=== PATIENT | female | born 1995 | race Caucasian/White ===

== ENCOUNTER 2017-11-26 12:04 | Day surgery (SDC) | payer OTHER, SELFPAY ==
[2017-11-26] VITALS (8 sets, daily range): BP systolic 106–124; BP diastolic 45–81; PULSE 52–97; RESP 14–18; TEMP 36.1–36.6; O2SAT 95–100; BMI 24.4
--- NOTE | 2017-11-26 | PATH_ITS ---
[facility] Accession Number: [id number] . 01 Material submitted: . PERINEAL BIOPSY . 02 Diagnosis: Perineal Biopsy: Dense fibrous tissue with multiple foci of benign endometriosis, negative for atypia. [facility]/12/01/2017 . 02 Electronically signed: . Alli Lopez MD, Pathologist NPI- [id number] . 01 Gross description: . Received in formalin, labeled 1-perineal biopsy, are two pieces of torrez-white, rubbery tissue (1.2 x 0.5 x 0.2 cm and 1.5 x 0.8 x 0.2 cm). Entirely submitted in cassette A1. ([id number]) /FRR . 02 Pathologist provided ICD-10: N80.8 . 02 CPT . 541683 Performed at: 01 [facility] [address] [id number] MD Esvin Armando MD Phone: [phone] [facility]formed at: 02 [facility] [address] [place], [place] [id number] MD Marcell Sawant MD Phone: [phone]
--- NOTE | 2017-11-26 13:03 | SUR.PREOP ---
discharge information reviewed
[2017-11-26] MEDS: LACTATED RINGERS 1,000 ML 42 ML IV ×2 (14:08→16:44)
[2017-11-26] MEDS: BUPIVACAINE 0.5% W/ EPI (PF) 30 ML VIAL INJ (14:48)
--- NOTE | 2017-11-26 15:24 | PM.PREOP ---
Pre-operative Note Interval Note Pre-op Check: History & Physical Reviewed by Physician and Exam Performed
--- NOTE | 2017-11-26 15:25 | PM.OP.1 ---
Operative Date/Time/Diagnoses - Date of procedure: 11/26/17 Time of procedure: 15:25 Pre-op diagnosis: Right lower quadrant pain possible endometriosis Post-op diagnosis: same Procedure & Clinicians Procedure: Laparoscopy with removal of peritoneal endometriosis Same procedure as scheduled: Yes Indications: Right lower quadrant pain with family history of endometriosis Surgeon: Leonie Og Anesthesia Type: General Operative Notes Findings: Normal intra-abdominal contents with normal tubes ovaries and uterus. One area of endometriosis in the cul de sac on the right uterosacral ligament. Closure Type: primary Specimen(s): other (Peritoneal biopsy) Estimated Blood Loss (mL): 5 Procedure in detail: Patient was brought to the operating room where she underwent general anesthesia. She was placed in low yellowfin stirrups and prepped and draped in usual sterile fashion. No antibiotics were indicated. Pulsatile stockings were in place and functional. Warming was with blankets. A single-tooth tenaculum was placed on the anterior lip of the cervix and the cervix dilated to #6 Hegar dilator. The Venus uterine manipulator was placed and balloon inflated with 3 mL of air. The area of the incisions were injected with half percent Marcaine with epinephrine. An incision was made in the umbilicus with a scalpel and the Verres needle placed in the abdomen. Confirmation of correct placement was performed by withdrawal on the syringe and then allowing fluid to fall freely through the needle. The abdomen was insufflated to 4 L of CO2. A 5 mm trocar was placed under direct visualization. 2 other 5 mm trochars were placed in the right and left lower quadrant under direct visualization after incising the skin. There did not appear to be any damage with placement of the trocars. The area of presumed endometriosis was grasped and monopolar cautery attached the scissors was used to remove the area of endometriosis in the posterior cul-de-sac on the right uterosacral ligament. Adequate hemostasis was noted. The CO2 was allowed to escape from the abdomen. The trochars were removed. Skin was closed with 4-0 Monocryl. The patient went to recovery room in good condition. Complications: none Condition: stable Disposition: same day surgery Plan for aftercare: Follow-up in 1 week for incision check.
[2017-11-26] MEDS: fentaNYL 100 MCG/2 ML INJ 50 MCG IV ×2 (15:28→15:35)
[2017-11-26] MEDS: HYDROCODONE/ACET 5/325 TABLET 1 TAB PO (15:48)
[2017-11-26] MEDS: ONDANSETRON 4 MG/2 ML INJ IV (16:39)
[2017-11-26] MEDS: METOCLOPRAMIDE 10 MG/2 ML INJ IV (16:53)
--- NOTE | 2017-11-26 17:19 | SUR.PHASEII ---
Pt. requested to get dressed, want to just go and get into bed, I'm ready to leave. No c/o nausea just sleepy
== END 2017-11-26 17:18 | disposition home or self-care (01) ==
PROVIDERS: PCP Family Medicine; Visit Provider Specialist
PROC: (CPT 49320; principal; 2017-11-26 14:00)
DX: Z84.2 Family history of other diseases of the genitourinary system (principal); N80.8 Other endometriosis
CPT/HCPCS: 58662; J0330; J1100; J1885; J2405; J2704; J2765; J3010

== ENCOUNTER → 2018-03-25 14:39 | Outpatient (CLI) | payer OTHER, SELFPAY ==
[2018-03-25 15:12] LABS: Add Manual Diff / Slide Review NO; Basophils Percent Auto 0.5 % (0-2); Eosinophils Percent Auto 0.7 % (2-4); Hematocrit 35.9 % (36-46); Hemoglobin 12.3 g/dL (12.0-16.0); Lymphocytes Percent Auto 26.1 % (25-40); Mean Corpuscular HGB Conc 34.2 % (30-36); Mean Corpuscular Hemoglobin 30.5 PG (26-34); Mean Corpuscular Volume 89.3 fL (80-100); Neutrophils Absolute Auto 6400 /uL (3000-5900); Neutrophils Percent Auto 66.7 % (50-75); Platelet Count 317 X10^3/uL (150-400); Red Blood Cell Count 4.02 X10^6/uL (4.0-5.2); Red Cell Distribution Width 12.8 % (11.6-14.8); White Blood Cell Count 9.7 X10^3/uL (4.5-11.0)
[2018-03-25 15:15] LABS: Appearance Urine UA CLEAR; Bilirubin Urine UA NEGATIVE (NEGATIVE); Color Urine UA YELLOW; Glucose Urine UA NEGATIVE (Normal); Ketones Urine UA NEGATIVE (NEGATIVE); Leukocyte Esterase Urine UA TRACE (NEGATIVE); Nitrite Urine UA Negative (Negative); Occult Blood Urine UA NEGATIVE (Negative); Protein Urine UA NEGATIVE (Negative); Specific Gravity Urine UA 1.015 (1.000-1.035); Urobilinogen Urine UA 0.2 E.U./dL (0.2); pH Urine UA 6.5 (4.5-8.0)
[2018-03-25 15:26] LABS: Bacteria Urine Moderate (10-30); RBC Urine None Seen (0-5/HPF); Squamous Epithelial Cell Urine 1-5 /HPF; WBC Urine 5-10/HPF (0-5/HPF)
[2018-03-25 16:07] LABS: Hepatitis B Surface Antigen NEGATIVE s/c (NEGATIVE); Rubella Antibody IgG 35.3 IU/mL (>15)
[2018-03-25 16:26] LABS: HIV 1 and 2 Antibody NEGATIVE (NEGATIVE); Hep C Virus Ab w/Reflex Quant NEGATIVE s/c (NEGATIVE)
[2018-03-29 15:12] LABS: HSV 2 IGG AB < 0.90 index (< 0.90); HSV1IGG < 0.90 index (< 0.90)
[2018-04-01 20:29] LABS: Rapid Plasma Reagin NON-REACTIVE
== END ==
PROVIDERS: PCP Family Medicine; Visit Provider Specialist
DX: Z34.81 Encounter for supervision of other normal pregnancy, first trimester (principal); Z3A.01 Less than 8 weeks gestation of pregnancy
CPT/HCPCS: 36415; 80055; 81003; 81015; 86695; 86696; 86703; 86787; 86803; 86850; 86900; 86901; 87086

== ENCOUNTER → 2018-06-01 09:33 | Outpatient (CLI) | payer OTHER, SELFPAY ==
--- NOTE | 2018-06-01 09:35 | DI.US.S_ITS ---
PROCEDURE: US OB >= 14 WEEKS FETUS INDICATIONS: ANATOMY OUTSIDE/PRIOR DATING DATA: Last menstrual period (LMP): 01/12/18. LMP-based estimated date of delivery (JERZY): 10/19/18. First dating scan (date and location): 03/25/18. Estimated date of delivery (JERZY) from first dating scan: 10/19/18. TECHNIQUE: Real-time scanning was performed of the fetus, with image documentation and biometric measurements. Endovaginal scanning: No COMPARISON: [facility], , OB >= 14 WEEKS FETUS, 05/12/2018, 13:02. FINDINGS: General: A single living intrauterine gestation is present. Presentation: Vertex. Placenta: Placental position is posterior, without previa. Amniotic fluid index: 13.2 cm, normal range is 5-24 cm. heart rate: 146 beats per minute. Maternal cervical canal: 3.6 cm long. Normal lower limit is 2.5 cm biometrics: Biparietal diameter: 20 weeks 1 day Head circumference: 20 weeks Abdominal circumference: 20 weeks Femur length: 19 weeks 2 days Estimated gestational age from initial scan: 20 weeks Composite gestational age from present scan: 19 weeks 6 days Estimated weight and percentile: 312 rd percentile Measurement variability for biometric dating: +/- 7 days from 14 weeks to 15 weeks 6 days gestation, +/- 10 days from 16 weeks to 21 weeks 6 days gestation, +/- 2 weeks from 22 weeks to 27 weeks 6 days gestation, +/- 3 weeks for 28 weeks gestation or later. weight reference: 4500 g or EFW >90/95% is considered macrosomia or large for gestational age. EFW <10% is small for gestational age. EFW 5% or less is considered intra-uterine growth restriction. Anatomic survey: Neuro: Ventricles are non-dilated at less than 10 mm. Cisterna magna is normal at 3-11 mm. Cerebellum is normal in size and morphology. Nuchal skin fold: Normal at less than 6 mm between 14-21 weeks gestational age. Face: Nose and lips, facial profile are normal. Spine: No evidence for spina bifida. Heart: 4-chambered heart is present, with normal ventricular outflow tracts. Diaphragm: Diaphragm is intact. Stomach: Left-sided stomach is present. Kidneys: No hydronephrosis. Normal is less than 5 mm in 2nd trimester, less than 7 mm in 3rd trimester. Cord: 3-vessel cord has orthotopic insertion. Bladder: Normal in size. Extremities: All 4 extremities identified. IMPRESSION: 1. Single living IUP with mean composite gestational age of 19 weeks 6 days corresponding to normal interval growth. 2. Normal anatomic survey. Dictated by: Young Shields [facility] Interpreted: Evgeny Stearns MD on 06/01/2018 at 11:25 Approved by: Evgeny Stearns M.D. on 06/01/2018 at 13:23
== END ==
PROVIDERS: PCP Family Medicine; Visit Provider Specialist
DX: Z34.82 Encounter for supervision of other normal pregnancy, second trimester (principal); Z36.89 Encounter for other specified antenatal screening; Z3A.19 19 weeks gestation of pregnancy
CPT/HCPCS: 76811

== ENCOUNTER → 2018-07-14 11:14 | Outpatient (CLI) | payer OTHER, SELFPAY ==
[2018-07-14 12:41] LABS: Hematocrit 35.3 % (36-46); Hemoglobin 11.8 g/dL (12.0-16.0)
[2018-07-14 13:01] LABS: GTT (PREG) 1 Hour PP 50gm Dose 108 mg/dL (76-139)
== END ==
PROVIDERS: Family Provider Family Medicine; PCP Family Medicine; Visit Provider Specialist
DX: Z34.92 Encounter for supervision of normal pregnancy, unspecified, second trimester (principal); Z3A.25 25 weeks gestation of pregnancy
CPT/HCPCS: 36415; 82950; 85014; 85018

== ENCOUNTER 2018-08-02 10:24 | Observation (INO) | payer OTHER, SELFPAY ==
[2018-08-02 11:40] LABS: RBC Urine None Seen (0-5/HPF)
[2018-08-02 11:42] LABS: Appearance Urine UA CLEAR; Bilirubin Urine UA NEGATIVE (NEGATIVE); Color Urine UA YELLOW; Glucose Urine UA NEGATIVE (Negative); Ketones Urine UA NEGATIVE (NEGATIVE); Leukocyte Esterase Urine UA 1+ (NEGATIVE); Nitrite Urine UA NEGATIVE (Negative); Occult Blood Urine UA NEGATIVE (Negative); Protein Urine UA NEGATIVE (Negative); Urobilinogen Urine UA 0.2 E.U./dL (0.2)
[2018-08-02 11:50] LABS: Bacteria Urine Many (>30); Squamous Epithelial Cell Urine 10-30 /HPF; WBC Urine 10-30/HPF (0-5/HPF)
[2018-08-02 11:51] LABS: Mucus Urine 1+ (Negative)
[2018-08-02 14:43] LABS: Fetal Fibronectin Negative
== END 2018-08-02 14:00 | disposition home or self-care (01) ==
PROVIDERS: Obstetrics & Gynecology; Admitting Provider Specialist; Family Provider Family Medicine; PCP Family Medicine; Visit Provider Specialist
DX: Z34.03 Encounter for supervision of normal first pregnancy, third trimester (principal); Z3A.28 28 weeks gestation of pregnancy; N94.89 Other specified conditions associated with female genital organs and menstrual cycle
CPT/HCPCS: 59025; 59050; 81001; 82731; 87086; G0378; G0379

== ENCOUNTER → 2018-09-27 10:44 | Outpatient (CLI) | payer OTHER, SELFPAY ==
[2018-09-28 07:59] LABS: Strep Grp B PCR NEG for Grp B Strep
== END ==
PROVIDERS: Family Provider Family Medicine; PCP Family Medicine; Visit Provider Specialist
DX: Z34.83 Encounter for supervision of other normal pregnancy, third trimester (principal); Z3A.36 36 weeks gestation of pregnancy
CPT/HCPCS: 87653

== ENCOUNTER 2018-10-04 02:32 | Inpatient (IN) | payer OTHER, SELFPAY ==
[2018-10-04 05:33] LABS: Add Manual Diff / Slide Review NO; Basophils Absolute Auto 100 /uL (0-100); Basophils Percent Auto 0.5 % (0-2); Eosinophils Absolute Auto 0 /uL (0-450); Eosinophils Percent Auto 0.3 % (2-4); Hematocrit 33.4 % (36-46); Hemoglobin 11.4 g/dL (12.0-16.0); Lymphocytes Absolute Auto 3000 /uL (1100-4500); Lymphocytes Percent Auto 22.3 % (25-40); Mean Corpuscular Hemoglobin 30.1 PG (26-34); Mean Corpuscular Volume 88.4 fL (80-100); Monocytes Absolute Auto 900 /uL (0-900); Monocytes Percent Auto 6.7 % (3-14); Neutrophils Absolute Auto 9300 /uL (1500-7000); Neutrophils Percent Auto 70.2 % (50-75); Platelet Count 385 X10^3/uL (150-400); Red Blood Cell Count 3.78 X10^6/uL (4.0-5.2); Red Cell Distribution Width 13.5 % (11.6-14.8); White Blood Cell Count 13.3 X10^3/uL (4.5-11.0)
[2018-10-04] MEDS: LACTATED RINGERS 1,000 ML 100 ML IV ×3 (05:45→09:04)
[2018-10-04] MEDS: OXYTOCIN PREMIX 30 UNIT/500 ML PLAST..BAG IV (09:04)
--- NOTE | 2018-10-04 09:28 | PM.OBHP.1 ---
OB HPI Date/Time Date of admission: 10/04/18 Date Patient Seen: 10/04/18 Time Patient Seen: 08:30 History of Present Condition Chief complaint: EVALUATION OF LABOR : 2 Para: 0 Estimated Date of Delivery: 10/20/18 Estimated Gestational Age (weeks): 37 Narrative: Jazz Larios is a 23 year old female admitted with spontaneous rupture membranes History of Present care: good care, initiated at week # (10), number of visits (9) and pounds weight gain (50) Dating criteria: LMP confirmed by 1st trimester US Ultrasounds: normal mid trimester US Obstetrical complications: none Medical complications: none Preadmission Labs Blood type: O (+) positive -: Antibody screen: negative, GBS status: negative, HBsAG: negative, HIV: negative, HSV 1: negative, HSV 2: negative and RPR/VDLR: negative -: Rubella: immune and Varicella: immune HCAB: negative 1 hr GTT: 108 Evaluation Evaluation Baseline heart rate: 120 Variability: Moderate (11-25) monitor accelerations: Present monitor decelerations: Absent Contraction Frequency (minutes): 3 Uterine Contraction Intensity: Moderate Category of Tracing: I Cervical dilation (cm): 2 Cervical effacement (%): 70 station: -2 Laboratory results: Laboratory Tests 10/04/18 10/04/18 05:00 05:00 WBC 13.3 H RBC 3.78 L Hgb 11.4 L Hct 33.4 L MCV 88.4 MCH 30.1 MCHC 34.0 RDW 13.5 Plt Count 385 Neut % (Auto) 70.2 Lymph % (Auto) 22.3 L [place] % (Auto) 6.7 Eos % (Auto) 0.3 L Baso % (Auto) 0.5 Neut # (Auto) 9300 H Lymph # (Auto) 3000 [place] # (Auto) 900 Eos # (Auto) 0 Baso # (Auto) 100 Blood Type O Positive Antibody Screen Negative Non-invasive Membranes Rupture Test: positive [facility] Social History Smoking Status: Never smoker Social History Smoking Status: Never smoker Meds Home Medications Medication Instructions Recorded Confirmed Type 1 tab PO DAILY 03/25/18 10/04/18 History vitamin,calcium,mtmzwmvv-bcdr-yocyi acid tablet Double Electric Breast Pump #1 ea 09/29/18 Rx Allergies Allergy/AdvReac Type Severity Reaction Status Date / Time adhesive tape Allergy Rash Verified 03/25/18 14:56 tramadol Allergy Verified 03/25/18 14:56 codeine [CODEINE] AdvReac Unknown Vomiting Verified 03/25/18 14:56 acetaminophen [From Vicodin] AdvReac Nausea, Verified 03/25/18 14:56 Dizziness hydrocodone [From Vicodin] AdvReac Nausea, Verified 03/25/18 14:56 Dizziness Review of Systems Review of Systems Patient denies signs or symptoms of preeclampsia. No fevers. She has had good movement. She had spontaneous rupture of membranes. All systems reviewed & are unremarkable except as noted in HPI and below Exam Vital Signs (past 8 hours): Blood pressure 122/76, pulse of 107, temperature 97.2? Narrative Exam Narrative: HEENT exam within normal limits. Lungs are clear to auscultation and percussion. Heart is regular rate and rhythm no S3-S4 or murmurs. Abdomen is soft, nontender. Extremities without edema and nontender. Objective Labs Result Diagrams: 10/04/18 05:00 Labs: Laboratory Results - last 24 hr 10/04/18 10/04/18 05:00 05:00 WBC 13.3 H RBC 3.78 L Hgb 11.4 L Hct 33.4 L MCV 88.4 MCH 30.1 MCHC 34.0 RDW 13.5 Plt Count 385 Neut % (Auto) 70.2 Lymph % (Auto) 22.3 L [place] % (Auto) 6.7 Eos % (Auto) 0.3 L Baso % (Auto) 0.5 Neut # (Auto) 9300 H Lymph # (Auto) 3000 [place] # (Auto) 900 Eos # (Auto) 0 Baso # (Auto) 100 Blood Type O Positive Antibody Screen Negative Assessment and Plan Assessment and Plan Assessment and Plan narrative: 37 week 5 day 1st with spontaneous rupture of membranes. Patient is katie but has not had a significant change in her cervix so will begin Pitocin augmentation of labor. Patient received epidural catheter for pain control. Anticipate vaginal delivery.
--- NOTE | 2018-10-04 09:34 | P.HPOB_ITS ---
OB HPI Date/Time Date of admission: 10/04/18 Date Patient Seen: 10/04/18 Time Patient Seen: 08:30 History of Present Condition Chief complaint: EVALUATION OF LABOR : 2 Para: 0 Estimated Date of Delivery: 10/20/18 Estimated Gestational Age (weeks): 37 Narrative: Jazz Larios is a 23 year old female admitted with spontaneous rupture membranes History of Present care: good care, initiated at week # (10), number of visits (9) and pounds weight gain (50) Dating criteria: LMP confirmed by 1st trimester US Ultrasounds: normal mid trimester US Obstetrical complications: none Medical complications: none Preadmission Labs Blood type: O (+) positive -: Antibody screen: negative, GBS status: negative, HBsAG: negative, HIV: negative, HSV 1: negative, HSV 2: negative and RPR/VDLR: negative -: Rubella: immune and Varicella: immune HCAB: negative 1 hr GTT: 108 Evaluation Evaluation Baseline heart rate: 120 Variability: Moderate (11-25) monitor accelerations: Present monitor decelerations: Absent Contraction Frequency (minutes): 3 Uterine Contraction Intensity: Moderate Category of Tracing: I Cervical dilation (cm): 2 Cervical effacement (%): 70 station: -2 Laboratory results: Laboratory Tests 10/04/18 10/04/18 05:00 05:00 WBC 13.3 H RBC 3.78 L Hgb 11.4 L Hct 33.4 L MCV 88.4 MCH 30.1 MCHC 34.0 RDW 13.5 Plt Count 385 Neut % (Auto) 70.2 Lymph % (Auto) 22.3 L [place] % (Auto) 6.7 Eos % (Auto) 0.3 L Baso % (Auto) 0.5 Neut # (Auto) 9300 H Lymph # (Auto) 3000 [place] # (Auto) 900 Eos # (Auto) 0 Baso # (Auto) 100 Blood Type O Positive Antibody Screen Negative Non-invasive Membranes Rupture Test: positive [facility] Social History Smoking Status: Never smoker Social History Smoking Status: Never smoker Meds Home Medications Medication Instructions Recorded Confirmed Type 1 tab PO DAILY 03/25/18 10/04/18 History vitamin,calcium,kjjihpxu-nyqp-ygrlp acid tablet Double Electric Breast Pump #1 ea 09/29/18 Rx Allergies Allergy/AdvReac Type Severity Reaction Status Date / Time adhesive tape Allergy Rash Verified 03/25/18 14:56 tramadol Allergy Verified 03/25/18 14:56 codeine [CODEINE] AdvReac Unknown Vomiting Verified 03/25/18 14:56 acetaminophen [From Vicodin] AdvReac Nausea, Verified 03/25/18 14:56 Dizziness hydrocodone [From Vicodin] AdvReac Nausea, Verified 03/25/18 14:56 Dizziness Review of Systems Review of Systems Patient denies signs or symptoms of preeclampsia. No fevers. She has had good movement. She had spontaneous rupture of membranes. All systems reviewed & are unremarkable except as noted in HPI and below Exam Vital Signs (past 8 hours): Blood pressure 122/76, pulse of 107, temperature 97.2? Narrative Exam Narrative: HEENT exam within normal limits. Lungs are clear to auscultation and percussion. Heart is regular rate and rhythm no S3-S4 or mu rmurs. Abdomen is soft, nontender. Extremities without edema and nontender. Objective Labs Result Diagrams: 10/04/18 05:00 Labs: Laboratory Results - last 24 hr 10/04/18 10/04/18 05:00 05:00 WBC 13.3 H RBC 3.78 L Hgb 11.4 L Hct 33.4 L MCV 88.4 MCH 30.1 MCHC 34.0 RDW 13.5 Plt Count 385 Neut % (Auto) 70.2 Lymph % (Auto) 22.3 L [place] % (Auto) 6.7 Eos % (Auto) 0.3 L Baso % (Auto) 0.5 Neut # (Auto) 9300 H Lymph # (Auto) 3000 [place] # (Auto) 900 Eos # (Auto) 0 Baso # (Auto) 100 Blood Type O Positive Antibody Screen Negative Assessment and Plan Assessment and Plan Assessment and Plan narrative: 37 week 5 day 1st with spontaneous rupture of membranes. Patient is katie but has not had a significant change in her cervix so will begin Pitocin augmentation of labor. Patient received epidural catheter for pain control. Anticipate vaginal delivery.
--- NOTE | 2018-10-04 15:11 | PM.OBPRVD ---
Events: Premature Rupture of Membrane Delivery date: 10/04/18 Delivery augmentation: pitocin Delivery monitor: external FHT and external uterine Route of delivery: L&D Laceration Description: Vaginal - 1st Degree Delivery repair: chromic (3-0) Estimated blood loss (mL): 100 Anesthesia type: Epidural Narrative: Patient arrived on Labor and delivery after having spontaneous rupture membranes at 7:00 p.m. on 10/03/2018. She was katie and received an epidural catheter but had not changed her cervix so was started on IV Pitocin augmentation. Patient progressed rapidly to complete and pushing. heart tones category 1 to category 2 throughout labor. The patient delivered spontaneously, over an intact perineum. The infant was placed on maternal abdomen after the cord stopped pulsating the cord was clamped cut and cord bloods obtained. The placenta delivered spontaneously, intact, with 3 vessels. There were no cervical tears. There was a first-degree vaginal tear of the just inside the hymen to the outside of the posterior fourchette. This was repaired with 3 0 chromic suture in the usual 2 layer fashion. There were periurethral tears that did not require suturing. The viable female infant weighed 6 lb 13 oz, 3094 g. both and mother doing well. The infant had initial increased temperature to 101 and maternal temperatures of 99.4 but decreasing for both. They will be monitored for signs of infection. Baby 1: gender: Female Presentation: vertex position: Right Occiput Anterior Placenta delivery description: Spontaneous cord vessel description: 3 Vessels score (1 min): 9 score (5 min): 9 Plan for aftercare: Routine care
[2018-10-04] MEDS: DERMOPLAST SPRAY 20% 60 ML 1 SPRAY TOP (18:39)
[2018-10-04 19:06] VITALS: BP 122/76
[2018-10-04] MEDS: IBUPROFEN 600 MG TABLET PO (20:40)
[2018-10-05] MEDS: LANOLIN OINT 7 GM 1 APPLIC TOP (00:13)
[2018-10-05] MEDS: IBUPROFEN 600 MG TABLET PO ×2 (06:38→12:29)
[2018-10-05 07:15] LABS: Add Manual Diff / Slide Review NO; Basophils Absolute Auto 100 /uL (0-100); Basophils Percent Auto 0.3 % (0-2); Eosinophils Absolute Auto 100 /uL (0-450); Eosinophils Percent Auto 0.4 % (2-4); Hematocrit 26.9 % (36-46); Hemoglobin 9.1 g/dL (12.0-16.0); Lymphocytes Absolute Auto 2800 /uL (1100-4500); Lymphocytes Percent Auto 16.7 % (25-40); Mean Corpuscular HGB Conc 33.7 % (30-36); Mean Corpuscular Hemoglobin 29.9 PG (26-34); Mean Corpuscular Volume 88.7 fL (80-100); Monocytes Absolute Auto 1300 /uL (0-900); Monocytes Percent Auto 7.9 % (3-14); Neutrophils Absolute Auto 12500 /uL (1500-7000); Neutrophils Percent Auto 74.7 % (50-75); Platelet Count 273 X10^3/uL (150-400); Red Blood Cell Count 3.03 X10^6/uL (4.0-5.2); Red Cell Distribution Width 13.4 % (11.6-14.8); White Blood Cell Count 16.7 X10^3/uL (4.5-11.0)
--- NOTE | 2018-10-05 08:08 | PM.OBDS.1 ---
Discharge Providers Date of admission: 10/04/18 02:32 Discharge Date: 10/05/18 Primary care physician: Dixon Gómez MD Consults: 10/04/18 15:29 Consult to [employer] Routine Comment: Discharge provider: Leonie Og MD Summary Date Patient Seen: 10/05/18 Time Patient Seen: 08:08 Procedures: Epidural catheter, Pitocin augmentation of labor, vaginal delivery, repair of first-degree vaginal laceration Hospital Course: Patient arrived on Labor and delivery with rupture membranes. She received an epidural catheter for pain control. She required Pitocin augmentation of labor. She had spontaneous vaginal delivery of a viable female weighing 6 lb 13 oz. Both mother doing well. They are breast-feeding without difficulty. Patient denies any signs or symptoms of preeclampsia. Her bleeding is a minimal. Blood pressure 113/56, pulse of 88, temperature 97.8? Abdomen is soft, nontender. Uterus is firm, at U, nontender. Repair is intact. Mild lochia. Extremities with +1 edema and nontender. Patient is O positive and rubella immune. Peripartum Data Delivery Method: Natural Vaginal Laceration description: Vaginal - 1st Degree complications: none [place] 1: Gender: Female Disposition of : home Discharge Diagnosis (1) Vaginal delivery: Status: Acute Status at Discharge Cognitive/behavioral status at discharge: oriented Overall status at discharge: patient is progressing back to baseline Time Spent with Patient Total time spent providing and/or coordinating discharge services: Less than 30 minutes Objective Labs Result Diagrams: 10/05/18 06:23 Labs: Laboratory Results - last 24 hr 10/05/18 06:23 WBC 16.7 H RBC 3.03 L Hgb 9.1 L Hct 26.9 L MCV 88.7 MCH 29.9 MCHC 33.7 RDW 13.4 Plt Count 273 Neut % (Auto) 74.7 Lymph % (Auto) 16.7 L [place] % (Auto) 7.9 Eos % (Auto) 0.4 L Baso % (Auto) 0.3 Neut # (Auto) 65444 H Lymph # (Auto) 2800 [place] # (Auto) 1300 H Eos # (Auto) 100 Baso # (Auto) 100 Discharge Plan Discharge Plan Patient Disposition: Home Discharge Med Rec/Prescriptions Prescriptions: Continued prenat.vits,radha,xhb-tdet-fneeu [ Vitamin] tablet 1 tab PO DAILY RF: 0 No Action Double Electric Breast Pump Qty: 1 RF: 0 Follow up/Referrals: Leonie Og MD [Physician] - 1 Month Dixon Gómez MD [Primary Care Provider] - Provider Discharge Instructions Diet: Regular Activity: Nothing in vagina for 4 weeks Skin/Wound/Dressing Care Report to your healthcare provider any signs of infection, such as:: chills, fever and increased pain Discharge Data Primary Care Provider: Dxion Gómez Attending Provider: Leonie Og Admit Date/Time: 10/04/18 02:32
--- NOTE | 2018-10-05 08:11 | P.DS_ITS ---
Discharge Providers Date of admission: 10/04/18 02:32 Discharge Date: 10/05/18 Primary care physician: Dixon Gómez MD Consults: 10/04/18 15:29 Consult to [employer] Routine Comment: Discharge provider: Leonie Og MD Summary Date Patient Seen: 10/05/18 Time Patient Seen: 08:08 Procedures: Epidural catheter, Pitocin augmentation of labor, vaginal delivery, repair of first-degree vaginal laceration Hospital Course: Patient arrived on Labor and delivery with rupture membranes. She received an epidural catheter for pain control. She required Pitocin augmentation of labor. She had spontaneous vaginal delivery of a viable female weighing 6 lb 13 oz. Both mother doing well. They are breast-feeding without difficulty. Patient denies any signs or symptoms of preeclampsia. Her bleeding is a minimal. Blood pressure 113/56, pulse of 88, temperature 97.8? Abdomen is soft, nontender. Uterus is firm, at U, nontender. Repair is intact. Mild lochia. Extremities with +1 edema and nontender. Patient is O positive and rubella immune. Peripartum Data Delivery Method: Natural Vaginal Laceration description: Vaginal - 1st Degree complications: none [place] 1: Gender: Female Disposition of : home Discharge Diagnosis (1) Vaginal delivery: Status: Acute Status at Discharge Cognitive/behavioral status at discharge: oriented Overall status at discharge: patient is progressing back to baseline Time Spent with Patient Total time spent providing and/or coordinating discharge services: Less than 30 minutes Objective Labs Result Diagrams: 10/05/18 06:23 Labs: Laboratory Results - last 24 hr 10/05/18 06:23 WBC 16.7 H RBC 3.03 L Hgb 9.1 L Hct 26.9 L MCV 88.7 MCH 29.9 MCHC 33.7 RDW 13.4 Plt Count 273 Neut % (Auto) 74.7 Lymph % (Auto) 16.7 L [place] % (Auto) 7.9 Eos % (Auto) 0.4 L Baso % (Auto) 0.3 Neut # (Auto) 90972 H Lymph # (Auto) 2800 [place] # (Auto) 1300 H Eos # (Auto) 100 Baso # (Auto) 100 Discharge Plan Discharge Plan Patient Disposition: Home Discharge Med Rec/Prescriptions Prescriptions: Continued prenat.vits,radha,hrq-dttq-spqpe [ Vitamin] tablet 1 tab PO DAILY RF: 0 No Action Double Electric Breast Pump Qty: 1 RF: 0 Follow up/Referrals: Leonie Og MD [Physician] - 1 Month Dixon Gómez MD [Primary Care Provider] - Provider Discharge Instructions Diet: Regular Activity: Nothing in vagina for 4 weeks Skin/Wound/Dressing Care Report to your healthcare provider any signs of infection, such as:: chills, fever and increased pain Discharge Data Primary Care Provider: Dixon Gómez Attending Provider: Leonie Og Admit Date/Time: 10/04/18 02:32
[2018-10-05] MEDS: TET,DIPH,PERTUSS(ACELL),VAC/PF 0.5 ML SYRINGE IM (12:33)
[2018-10-05] MEDS: DOCUSATE 250 MG CAPSULE PO (12:33)
== END 2018-10-05 14:30 | disposition home or self-care (01) | DRG 807 ==
PROVIDERS: Admitting Provider Specialist; Family Provider Family Medicine; PCP Family Medicine; Visit Provider Specialist
DX: O42.02 Full-term premature rupture of membranes, onset of labor within 24 hours of rupture (principal); Z37.0 Single live birth; Z3A.37 37 weeks gestation of pregnancy; O70.0 First degree perineal laceration during delivery
CPT/HCPCS: 01967; 36415; 59050; 59400; 76815; 85025; 86850; 86900; 86901; 90715; G0379; J2590

== ENCOUNTER → 2019-08-23 11:34 | Outpatient (CLI) | payer OTHER, SELFPAY ==
[2019-08-23 12:12] LABS: Appearance Urine UA SL CLOUDY; Bilirubin Urine UA NEGATIVE (NEGATIVE); Color Urine UA YELLOW; Glucose Urine UA NEGATIVE (Negative); Ketones Urine UA NEGATIVE (NEGATIVE); Leukocyte Esterase Urine UA NEGATIVE (NEGATIVE); Nitrite Urine UA NEGATIVE (Negative); Occult Blood Urine UA NEGATIVE (Negative); Protein Urine UA NEGATIVE (Negative); Specific Gravity Urine UA 1.025 (1.000-1.035); Urobilinogen Urine UA 0.2 E.U./dL (0.2)
[2019-08-23 12:13] LABS: Add Manual Diff / Slide Review NO; Basophils Absolute Auto 0 /uL (0-100); Basophils Percent Auto 0.4 % (0-2); Eosinophils Absolute Auto 0 /uL (0-450); Eosinophils Percent Auto 0.2 % (2-4); Hematocrit 39.3 % (36-46); Hemoglobin 13.3 g/dL (12.0-16.0); Lymphocytes Absolute Auto 1800 /uL (1100-4500); Lymphocytes Percent Auto 19.5 % (25-40); Mean Corpuscular HGB Conc 33.9 % (30-36); Mean Corpuscular Hemoglobin 30.3 PG (26-34); Mean Corpuscular Volume 89.3 fL (80-100); Monocytes Absolute Auto 500 /uL (0-900); Monocytes Percent Auto 5.5 % (3-14); Neutrophils Absolute Auto 7000 /uL (1500-7000); Neutrophils Percent Auto 74.4 % (50-75); Platelet Count 366 X10^3/uL (150-400); White Blood Cell Count 9.3 X10^3/uL (4.5-11.0)
[2019-08-23 12:14] LABS: pH Urine UA 5.5 (4.5-8.0)
[2019-08-23 16:52] LABS: Hepatitis B Surface Antigen NEGATIVE s/c (NEGATIVE); Rubella Antibody IgG 34.5 IU/mL (>15)
[2019-08-23 17:04] LABS: HIV 1 & 2 Ab/Ag 4th Gen Combo NEGATIVE (NEGATIVE); Hep C Virus Ab w/Reflex Quant NEGATIVE s/c (NEGATIVE)
[2019-08-25 20:38] LABS: RPR Screen Nonreactive (Nonreactive)
== END ==
PROVIDERS: Family Provider Family Medicine; PCP Family Medicine; Referring Provider Specialist; Visit Provider Specialist
DX: Z34.81 Encounter for supervision of other normal pregnancy, first trimester (principal)
CPT/HCPCS: 36415; 80055; 81003; 86787; 86803; 86850; 86900; 86901; 87086; 87389

== ENCOUNTER → 2019-11-09 09:13 | Outpatient (CLI) | payer OTHER, SELFPAY ==
--- NOTE | 2019-11-09 09:15 | DI.US.S_ITS ---
PROCEDURE: US OB >= 14 WEEKS FETUS INDICATIONS: ANATOMY OUTSIDE/PRIOR DATING DATA: Last menstrual period (LMP): 06/26/2019. LMP-based estimated date of delivery (JERZY): 03/31/2020. First dating scan (date and location): 08/23/2019. Estimated date of delivery (JERZY) from first dating scan: 03/28/2020. TECHNIQUE: Real-time scanning was performed of the fetus, with image documentation and biometric measurements. Endovaginal scanning: Not performed COMPARISON: [facility], , OB <= 14 WEEKS FETUS, 09/20/2019, 12:39. [facility], , OB <= 14 WEEKS FETUS, 08/23/2019, 11:13. FINDINGS: General: A single living intrauterine gestation is present. Presentation: Breech. Placenta: Placental position is anterior, without previa. Amniotic fluid index: 15.8 cm, normal range is 5-24 cm. heart rate: 157 beats per minute. Maternal cervical canal: 4.0 cm long. Normal lower limit is 2.5 cm. biometrics: Biparietal diameter: 20 weeks 1 days Head circumference: 20 weeks 1 days Abdominal circumference: 21 weeks 1 day Femur length: 19 weeks 6 days Estimated gestational age from initial scan: 20 weeks 0 day. Composite gestational age from present scan: 20 weeks 2 days Estimated weight and percentile: 361 gm; 76% Measurement variability for biometric dating: +/- 7 days from 14 weeks to 15 weeks 6 days gestation, +/- 10 days from 16 weeks to 21 weeks 6 days gestation, +/- 2 weeks from 22 weeks to 27 weeks 6 days gestation, +/- 3 weeks for 28 weeks gestation or later. weight reference: 4500 g or EFW >90/95% is considered macrosomia or large for gestational age. EFW <10% is small for gestational age. EFW 5% or less is considered intra-uterine growth restriction. Anatomic survey: Neuro: Ventricles are non-dilated at less than 10 mm. Cisterna magna is normal at 3-11 mm. Cerebellum is normal in size and morphology. Nuchal skin fold: Normal at less than 6 mm between 14-21 weeks gestational age. Face: Nose and lips, facial profile are normal. Spine: No evidence for spina bifida. Heart: 4-chambered heart is present, with normal ventricular outflow tracts. Diaphragm: Diaphragm is intact. Stomach: Left-sided stomach is present. Kidneys: No hydronephrosis. Normal is less than 5 mm in 2nd trimester, less than 7 mm in 3rd trimester. Cord: 3-vessel cord has orthotopic insertion. Bladder: Normal in size. Extremities: All 4 extremities identified. IMPRESSION: 1. A single living intrauterine gestation with appropriate interval growth. 2. Normal anatomic survey. Dictated by: Albin Galindo M.D. on 11/09/2019 at 10:33 Approved by: Albin Galindo M.D. on 11/09/2019 at 10:36
== END ==
PROVIDERS: Family Provider Family Medicine; PCP Family Medicine; Referring Provider Specialist; Visit Provider Specialist
DX: Z34.82 Encounter for supervision of other normal pregnancy, second trimester (principal); Z3A.20 20 weeks gestation of pregnancy
CPT/HCPCS: 76811

== ENCOUNTER → 2019-12-14 10:27 | Outpatient (CLI) | payer OTHER, SELFPAY ==
[2019-12-14 12:50] LABS: Hematocrit 35.5 % (36-46); Hemoglobin 12.3 g/dL (12.0-16.0)
[2019-12-14 13:15] LABS: GTT (PREG) 1 Hour PP 50gm Dose 162 mg/dL (76-139)
== END ==
PROVIDERS: Family Provider Family Medicine; PCP Family Medicine; Referring Provider Specialist; Visit Provider Specialist
DX: Z34.82 Encounter for supervision of other normal pregnancy, second trimester (principal)
CPT/HCPCS: 36415; 82950; 85014; 85018

== ENCOUNTER → 2019-12-21 08:56 | Outpatient (CLI) | payer OTHER, SELFPAY ==
[2019-12-21 11:19] LABS: Glucose Fasting Gestational 71 mg/dL (76-95)
[2019-12-21 11:21] LABS: Glucose 1 Hour Gest 153 mg/dL (76-180)
[2019-12-21 12:33] LABS: Glucose Tol Interp,Gestational INTERPRETATION
[2019-12-21 13:18] LABS: Glucose 2 Hour Gest 90 mg/dL (76-155)
[2019-12-21 13:19] LABS: Glucose 3 Hour Gest 104 mg/dL (76-140)
== END ==
PROVIDERS: Family Provider Family Medicine; PCP Family Medicine; Referring Provider Specialist; Visit Provider Specialist
DX: O99.810 Abnormal glucose complicating pregnancy (principal)
CPT/HCPCS: 36415; 82951; 82952

== ENCOUNTER 2020-03-21 15:08 | Outpatient (CLI) | payer OTHER, SELFPAY ==
--- NOTE | 2020-03-21 15:47 | PM.OBTRLD ---
Visit Information Visit Information Date of evaluation: 03/21/20 Primary OB Provider: Leonie Og Reason for Evaluation: Yes rule out labor Comments/Additional reasons for admission: 24YO @ [id number] presents w/ c/o persistent mild ctx since last night and decreased FM since contractions started. No VB or LOF. 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) special kyler needs: No seatbelt use: always working smoke detector in home: Yes fire extinguisher in home: Yes carbon monox detector in home: Yes firearms in home: Yes ( [employer]) firearms unloaded and locked: No do you feel safe at home: Yes Smoking Status: Never smoker alcohol intake: former substance use type: does not use during the past year weight has: decreased > 10 lbs well-balanced diet: daily or most days daily servings fruits/ve-4 caffeine: Yes Type(s) of exercise: walking and aerobic frequency: 1-2 times per week Review of Systems Review of Systems ROS: Yes All systems reviewed with the patient and are negative except as otherwise documented Exam Vital Signs (past 8 hours): see above Presentation: vertex Evaluation Evaluation Baseline heart rate: 140 Variability: Moderate (11-25) monitor accelerations: Present monitor decelerations: Absent Contraction Frequency (minutes): 6 Uterine Contraction Intensity: Mild Category of Tracing: Reactive Cervical dilation (cm): 1 Cervical effacement (%): 10 station: -3 Diagnosis, Plan/Disposition Plan/Disposition Plan: Not in active labor w/ reactive NST. [place] if things progress. Routine labor precautions discussed. RTC as previously scheduled. OB Disposition: home
== END 2020-03-21 15:50 | disposition home or self-care (01) ==
LOC: OB 03-25 12:29
PROVIDERS: Family Provider Family Medicine; PCP Family Medicine; Referring Provider Family Medicine; Visit Provider Family Medicine
DX: O36.8130 Decreased fetal movements, third trimester, not applicable or unspecified (principal); Z3A.38 38 weeks gestation of pregnancy
CPT/HCPCS: 59025; G0378; G0379

== ENCOUNTER 2020-03-22 11:51 | Observation (INO) | payer OTHER, SELFPAY ==
--- NOTE | 2020-03-22 11:54 | DI.US.S_ITS ---
PROCEDURE: US OB BIOPHYSICAL PROFILE INDICATIONS: decreased movement, OUTSIDE/PRIOR DATING DATA: Last menstrual period (LMP): 06/23/19. LMP-based estimated date of delivery (JERZY): 03/31/20 First dating scan (date and location): 08/23/19 Estimated date of delivery (JERZY) from first dating scan: 03/28/20 TECHNIQUE: Real-time scanning was performed of the fetus for biophysical profile, with image documentation. Color and pulse Doppler interrogation was also performed of the umbilical artery near its insertion into the placenta. Endovaginal scanning: Not needed COMPARISON: None. FINDINGS: General: A single living intrauterine gestation is present. Presentation: Vertex. Placenta: Placental position is anterior , without previa. Amniotic fluid index: 8.5 cm, normal range is 5-24 cm. heart rate: 144 beats per minute. Maternal cervical canal: 4.0 cm long. Normal lower limit is 2.5 cm. Estimated gestational age from initial scan: 39 weeks 1 day . Biophysical profile: Tone: 2 points. Movement: 2 points. Respiration: 2 points. Largest pocket of fluid: 2 points. IMPRESSION: Vertex presentation. Biophysical profile is 8 of 8 possible points. Dictated by: Kt Lee M.D. on 03/22/2020 at 15:06 Approved by: Kt Lee M.D. on 03/22/2020 at 15:08
[2020-03-22 12:40] LABS: Appearance Urine UA CLEAR; Bilirubin Urine UA NEGATIVE (NEGATIVE); Color Urine UA YELLOW; Glucose Urine UA NEGATIVE (Negative); Ketones Urine UA NEGATIVE (NEGATIVE); Leukocyte Esterase Urine UA 1+ (NEGATIVE); Nitrite Urine UA NEGATIVE (Negative); Occult Blood Urine UA NEGATIVE (Negative); Protein Urine UA NEGATIVE (Negative); RBC Urine None Seen (0-5/HPF); Specific Gravity Urine UA 1.015 (1.000-1.035); Urobilinogen Urine UA 0.2 E.U./dL (0.2)
[2020-03-22 12:49] LABS: Amorphous Sediment Urine 1+; Bacteria Urine Many (>30); Culture Indicated Urine Specimen Cultured; Mucus Urine 1+ (Negative); Squamous Epithelial Cell Urine 1-5 /HPF (0-5/HPF); Transitional Epi Cells Urine 0-1/HPF (0-5/HPF); WBC Urine 5-10/HPF (0-5/HPF)
--- NOTE | 2020-03-23 11:10 | PM.OBTRLD ---
Visit Information Visit Information Date of evaluation: 03/23/20 Primary OB Provider: Leonie Og On-call OB Provider: Aisha Corrales Reason for Evaluation: Yes non-stress test Comments/Additional reasons for admission: Patient sent over at 38 weeks for NST for decreased movement in the setting of irregular cramping, nausea. 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) special kyler needs: No seatbelt use: always working smoke detector in home: Yes fire extinguisher in home: Yes carbon monox detector in home: Yes firearms in home: Yes ( [employer]) firearms unloaded and locked: No do you feel safe at home: Yes Smoking Status: Never smoker alcohol intake: former substance use type: does not use during the past year weight has: decreased > 10 lbs well-balanced diet: daily or most days daily servings fruits/ve-4 caffeine: Yes Type(s) of exercise: walking and aerobic frequency: 1-2 times per week Review of Systems Review of Systems Narrative: nasuea, cramping, diarrhea Exam Const General: cooperative, healthy appearing and comfortable GI Palpation: soft and No tender Objective Labs Labs: Laboratory Results - last 24 hr 03/22/20 12:35 Urine Color Yellow Urine Appearance Clear Urine pH 7.0 Ur Specific [place] 1.015 Urine Protein Negative Urine Glucose (UA) Negative Urine Ketones Negative Urine Occult Blood Negative Urine Nitrate Negative Urine Bilirubin Negative Urine Urobilinogen 0.2 Ur Leukocyte Esterase 1+ H Urine RBC None seen Urine WBC 5-10/hpf H Ur Squamous Epith Cells 1-5 /hpf D Ur Transition Epith Cell 0-1/hpf Amorphous Sediment 1+ Urine Bacteria Many (>30) H Urine Mucus 1+ H Ur Culture Indicated? Specimen cultured Evaluation Evaluation Baseline heart rate: 130 Variability: Moderate (11-25) monitor accelerations: Present monitor decelerations: Absent Contraction Frequency (minutes): 10 Category of Tracing: Reactive Laboratory results: Laboratory Tests 03/22/20 12:35 Urine Color Yellow Urine Appearance Clear Urine pH 7.0 Ur Specific [place] 1.015 Urine Protein Negative Urine Glucose (UA) Negative Urine Ketones Negative Urine Occult Blood Negative Urine Nitrate Negative Urine Bilirubin Negative Urine Urobilinogen 0.2 Ur Leukocyte Esterase 1+ H Urine RBC None seen Urine WBC 5-10/hpf H Ur Squamous Epith Cells 1-5 /hpf D Ur Transition Epith Cell 0-1/hpf Amorphous Sediment 1+ Urine Bacteria Many (>30) H Urine Mucus 1+ H Ur Culture Indicated? Specimen cultured Comments: Patient sent for BPP in , 02/16 with ASHLIE 8.5 Diagnosis, Plan/Disposition Plan/Disposition Plan: Patient has reassuring testing and is feeling movement after eating for the first time today during her NST. Tolerated this PO intake. UA significant for UTI, discharged on keflex with precautions. Plans to stay off [place] over the weekend. OB Disposition: home
== END 2020-03-22 12:45 | disposition home or self-care (01) ==
PROVIDERS: Obstetrics & Gynecology; Admitting Provider Specialist; Family Provider Family Medicine; PCP Family Medicine; Referring Provider Specialist; Visit Provider Specialist
DX: O36.8130 Decreased fetal movements, third trimester, not applicable or unspecified (principal); R11.0 Nausea; R19.7 Diarrhea, unspecified; M54.9 Dorsalgia, unspecified; Z3A.38 38 weeks gestation of pregnancy
CPT/HCPCS: 76819; 81001; 87086; G0378; G0379

== ENCOUNTER 2020-03-24 07:44 | Inpatient (IN) | payer OTHER, SELFPAY ==
--- NOTE | 2020-03-24 08:05 | P.HPOB_ITS ---
OB HPI Date/Time Date of admission: 03/24/20 Date Patient Seen: 03/24/20 Time Patient Seen: 08:00 History of Present Condition Chief complaint: Delivery : 4 Para: 1 Estimated Date of Delivery: 03/31/20 Estimated Gestational Age (weeks): 39 Narrative: Jazz Larios is a 24 year old @39+0 who presented via EMS, having gone into precipitous labor on [facility] and delviered on an EMS boat en route. She reports that she woke at 3:30 katie q20-30 minutes, began arranging transport, and broke her water while waiting for EMS. She was recently treated for a UTI with keflex, which she has been taking. She denies any other symptoms or complications. Her had been otherwise uncomplicated, and she had a history of 1x prior and 2x early SABs, but denies any other contributory medical, surgical, front office representative, family, or social history. Per EMS notes and an accompanying FM resident, the delivery was uncomplicated, with 1x loose nuchal cord and spontaneous delivery of an intact placenta. 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) special kyler needs: No seatbelt use: always working smoke detector in home: Yes fire extinguisher in home: Yes carbon monox detector in home: Yes firearms in home: Yes ( [employer]) firearms unloaded and locked: No do you feel safe at home: Yes Smoking Status: Never smoker alcohol intake: former substance use type: does not use during the past year weight has: decreased > 10 lbs well-balanced diet: daily or most days daily servings fruits/ve-4 caffeine: Yes Type(s) of exercise: walking and aerobic frequency: 1-2 times per week Meds Home Medications and Allergies Home Medications Medication Instructions Recorded Confirmed Type prenat.vits,radha,bcm-glpy-jlhvx 1 tab PO DAILY 03/25/18 03/21/20 History Double Electric breast Pump and #1 each 02/13/20 03/11/20 Rx Supplies cephalexin 500 mg capsule 500 mg PO BID #14 cap 03/22/20 03/22/20 Rx Allergies Allergy/AdvReac Type Severity Reaction Status Date / Time adhesive tape Allergy Rash Verified 03/21/20 15:24 tramadol Allergy Verified 03/21/20 15:24 codeine [CODEINE] AdvReac Unknown Vomiting Verified 03/21/20 15:24 hydrocodone [From Vicodin] AdvReac Nausea, Verified 03/21/20 15:24 Dizziness Review of Systems Constitutional Constitutional: Reports system reviewed and no additional complaints, except as documented Cardiovascular Cardiovascular: Reports system reviewed and no additional complaints, except as documented Respiratory Respiratory: Reports system reviewed and no additional complaints, except as documented Gastrointestinal Gastrointestinal: Reports system reviewed and no additional complaints, except as documented Genitourinary Genitourinary: Reports system reviewed and no additional complaints, except as documented Exam Vital Signs (past 8 hours): VSS on arrival per nursing staff, but not recorded. Const General: cooperative, healthy appearing and comfortable GI Palpation: soft and No tender Other: A 2nd degree perineal laceration was noted on exam. This was infiltrated with 6ccs 1% lidocaine and repaired with 3-0 vicryl in the usual fashion. Skin General: no rashes or lesions noted Assessment and Plan Assessment and Plan Assessment and Plan narrative: This patient presented after precipitous vaginal delivery en route to the hospital, having delivered the placenta intact prior to arrival and received 10mg IM pitocin . The patient is doing well with mild to moderate lochia and a firm fundus, and had a 2nd degree perineal laceration as repaired above. - 20mU pitocin in IV fluids over 2 hours - routine care
[2020-03-24] MEDS: IBUPROFEN 600 MG TABLET PO ×2 (08:59→19:42)
--- NOTE | 2020-03-24 09:08 | PM.OBPRVD ---
Labor & Delivery Delivery date: 03/24/20 Intrapartal events: Precipitous Labor < 3 hours and Born Out of Hospital Route of delivery: L&D Laceration Description: Perineal - 2nd Degree Delivery repair: vicryl Estimated blood loss (mL): 100 Narrative: This patient began katie on [facility], and delivered with assistance from EMS on a boat on route. She was assisted by a resident from the [facility], who reports an uncomplicated delivery with reduction of one loose nuchal cord, intact and spontaneous placental delivery, and no other complications. She received 10mU IM pitocin en route. On arrival, a 2nd degree perineal laceration was noted and repaired with 3-0 vicryl in the usual fashion after infiltration with lidocaine. The patient was administered 20mU pitocin in her IV fluids, but had an otherwise uncomplicated immediate course. [place] Baby 1: Infant gender: Male Presentation: vertex Placenta delivery description: Spontaneous score (1 min): 9 score (5 min): 9 Plan for aftercare: Routine care.
[2020-03-25] MEDS: IBUPROFEN 600 MG TABLET PO (05:50)
[2020-03-25 06:03] LABS: Add Manual Diff / Slide Review NO; Basophils Absolute Auto 100 /uL (0-100); Basophils Percent Auto 0.5 % (0-2); Eosinophils Absolute Auto 100 /uL (0-450); Eosinophils Percent Auto 0.8 % (2-4); Hematocrit 26.5 % (36-46); Hemoglobin 8.5 g/dL (12.0-16.0); Lymphocytes Absolute Auto 3700 /uL (1100-4500); Lymphocytes Percent Auto 31.6 % (25-40); Mean Corpuscular HGB Conc 32.1 % (30-36); Mean Corpuscular Hemoglobin 27.5 PG (26-34); Mean Corpuscular Volume 85.7 fL (80-100); Monocytes Absolute Auto 700 /uL (0-900); Monocytes Percent Auto 6.3 % (3-14); Neutrophils Absolute Auto 7100 /uL (1500-7000); Neutrophils Percent Auto 60.8 % (50-75); Platelet Count 247 X10^3/uL (150-400); Red Blood Cell Count 3.09 X10^6/uL (4.0-5.2); Red Cell Distribution Width 15.4 % (11.6-14.8); White Blood Cell Count 11.6 X10^3/uL (4.5-11.0)
--- NOTE | 2020-03-25 07:52 | P.DS_ITS ---
Discharge Providers Provider Date of admission: 03/24/20 07:44 Discharge Date: 03/25/20 Primary care physician: Dixon Gómez MD Consults: 03/25/20 08:03 Consult to Blocking Machine Operator Second Routine Comment: Discharge provider: Aisha Corrales MD Summary Hospital Course Date Patient Seen: 03/25/20 Time Patient Seen: 07:53 Procedures: Perineal laceration repair- out of hospital Hospital Course: This patient was brought in by EMS shortly after delivering a healthy baby boy en route to the hospital. The placenta had delivered intact, and a 2nd degree perineal laceration was repaired under local anesthetic. Her recovery was uneventful, and she was discharged on PPD#1 with routine precautions. Peripartum Data Delivery Method: Natural Vaginal Laceration Description: Perineal - 2nd Degree complications: none 1: Gender: Male Disposition of : home Status at Discharge Cognitive/behavioral status at discharge: oriented Functional status at discharge: independent ambulation Overall status at discharge: patient is progressing back to baseline Time Spent with Patient Time attestation: Total time spent providing and/or coordinating discharge services: Objective Labs Result Diagrams: 03/25/20 05:35 Labs: Laboratory Results - last 24 hr 03/25/20 05:35 WBC 11.6 H RBC 3.09 L Hgb 8.5 L Hct 26.5 L MCV 85.7 MCH 27.5 MCHC 32.1 RDW 15.4 H Plt Count 247 Neut % (Auto) 60.8 Lymph % (Auto) 31.6 [place] % (Auto) 6.3 Eos % (Auto) 0.8 L Baso % (Auto) 0.5 Neut # (Auto) 7100 H Lymph # (Auto) 3700 [place] # (Auto) 700 Eos # (Auto) 100 Baso # (Auto) 100 Exam Vital Signs (past 8 hours): 108/57, HR 66 Const General: cooperative, healthy appearing and comfortable Resp Effort & Inspection: normal respiratory effort Auscultation: clear to auscultation bilaterally Cardio Rate: regular rate Rhythm: regular rhythm GI Palpation: soft and No tender Other: fundus firm, well below u Extrem General: normal to inspection Discharge Plan Discharge Plan Patient Disposition: Home Discharge orders & Medications Prescriptions: Continued (DME) Double Electric breast Pump and Supplies See Rx Instructions .ROUTE .MEDSUPPLY Qty: 1 RF: 0 prenat.vits,radha,gld-zxey-yzncp [ Vitamin] tablet 1 tab PO DAILY RF: 0 cephalexin [Keflex] 500 mg capsule 500 mg PO BID Qty: 14 RF: 0 Follow up/Referrals: Dixon Gómez MD [Primary Care Provider] - Leonie Og MD [Physician] - 6 Weeks Diet/Activity/Treatments Diet: Regular Activity: Nothing in the vagina for 6 weeks. Avoid lifting more than 10 lbs for 6 weeks. If you have increasing fevers, chills, nausea, vomiting, headaches, visual changes, or any other symptoms or complaints, call or come to the emergency room. Skin/Wound/Dressing Care Report to your healthcare provider any signs of infection, such as:: chills, fever, night sweats, increased pain, unusual drainage and unusual redness Visit Report/Discharge Packet Instructions: DI for Labor and Delivery, Vaginal Discharge Data Primary Care Provider: Dixon Gómez Attending Provider: Aisha Corrales Admflavio Date/Time: 03/24/20 07:44
== END 2020-03-25 11:00 | disposition home or self-care (01) | DRG 769 ==
PROVIDERS: Admitting Provider Obstetrics & Gynecology; Family Provider Family Medicine; PCP Family Medicine; Referring Provider Specialist; Visit Provider Obstetrics & Gynecology
DX: Z39.0 Encounter for care and examination of mother immediately after delivery (principal); O62.3 Precipitate labor; Z3A.39 39 weeks gestation of pregnancy; O69.81X0 Labor and delivery complicated by cord around neck, without compression, not applicable or unspecified; O70.1 Second degree perineal laceration during delivery
CPT/HCPCS: 12041; 36415; 76819; 81001; 85025; 87086; G0378; G0379

== ENCOUNTER → 2020-12-12 11:19 | Outpatient (CLI) | payer OTHER, SELFPAY ==
[2020-12-12 15:50] LABS: COVID19 -Nasal RAPID Negative (Negative)
== END ==
PROVIDERS: Family Provider Family Medicine; PCP Family Medicine; Visit Provider Specialist
DX: Z20.822 Contact with and (suspected) exposure to COVID-19 (principal)
CPT/HCPCS: 87635

== ENCOUNTER 2020-12-12 15:30 | Day surgery (SDC) | payer OTHER, SELFPAY ==
--- NOTE | 2020-12-12 | PATH_ITS ---
[facility] Accession Number: [id number] . 01 Material submitted: . product of conception - PRODUCTS OF CONCEPTION . 02 Diagnosis: Products of Conception: Products of conception identified. [facility] 12/17/2020 0956 Local . 02 Electronically signed: . Giovanna Melgar MD, Pathologist NPI- [id number] . 01 Gross description: . The specimen is received in formalin, labeled products of conception and consists of multiple varela-pink fragments of soft tissue measuring 8.0 x 4.0 x 2.5 cm in aggregate. Chorionic villi are identified. No parts are identified. Manager Training sections are submitted in cassettes A1-A2. (EA:[id number]) /V 12/13/2020 1128 Local . 02 Pathologist provided ICD-10: O02.1 . 02 CPT . 793823 Performed at: 01 [facility] [address] [id number] MD Esvin Armando MD Phone: [phone] Performed at: 02 [facility] [address] [place], [place] [id number] MD Kelsey Cadena MD Phone: [phone]
[2020-12-12 16:07] VITALS: BP 115/74; PULSE 84; RESP 16; TEMP 36.7; O2SAT 99; BMI 29.9
[2020-12-12] MEDS: LACTATED RINGERS 1,000 ML 100 ML IV (16:19)
--- NOTE | 2020-12-12 16:30 | PM.PREOP ---
Pre-operative Note COVID-19 COVID-19 status: Negative Result date/Date tested (Pos, Neg/Pending): 12/12/20 Interval Note History & Physical reviewed/Exam performed by Physician: Yes Changes to H&P: No
[2020-12-12] MEDS: DOXYCYCLINE 200 MG in SODIUM CHLORIDE 0.9% 250 ML IV (16:38)
--- NOTE | 2020-12-12 16:50 | SUR.OPER ---
Lithotomy on padded OR bed, head on pillow, arms secured on padded arm boards at <90 degrees abduction. Legs secured in padded yellow fins stirrups.
[2020-12-12 17:01] VITALS: BP 105/44; PULSE 76; RESP 20; TEMP 36.7; O2SAT 96
[2020-12-12 17:06] VITALS: BP 112/50; PULSE 76; RESP 14; O2SAT 97
[2020-12-12 17:11] VITALS: BP 111/49; PULSE 64; RESP 18; O2SAT 97
[2020-12-12] MEDS: ACETAMINOPHEN 325 MG TABLET 975 MG PO (17:11)
[2020-12-12 17:16] VITALS: BP 116/62; PULSE 61; RESP 20; TEMP 36.2; O2SAT 97
[2020-12-12 17:31] VITALS: BP 111/65; PULSE 63; RESP 17; TEMP 37; O2SAT 98
[2020-12-12] MEDS: KETOROLAC 30 MG/ML VIAL IV (17:31)
--- NOTE | 2020-12-12 17:31 | P.OP_ITS ---
Operative Date/Time/Diagnoses Date of procedure: 12/12/20 Time of procedure: 17:31 Pre-op diagnosis: Missed AB Post-op diagnosis: same Procedure & Clinicians Procedure: Suction D&C Same procedure as scheduled: Yes Indications: 9 week demise without bleeding Surgeon: Leonie Og Click Yes if Unassisted: Yes Anesthesia Type: General Operative Notes Findings: Moderate amount of retained products of conception Closure Type: not applicable Specimen(s): other (Uterine contents) Estimated Blood Loss (mL): 20 Blood products transfused: none Procedure in detail: Patient was brought to the operating room where she underwent general anesthesia. She was placed in low Yellofin stirrups and prepped and draped in the usual sterile fashion. A check system was reviewed with staff in the room prior to beginning the case. Patient received IV doxycyc line 200 mg prior the case. A speculum was placed in the vagina and the cervix was grasped with a single-tooth tenaculum. The cervix was dilated to a #8 Hegar dilator. The # 8 suction curette was placed into the uterus and tissue removed with scraping. A sharp curette was used to confirm no retained products with the suction curette replaced to remove any retained tissue. The patient tolerated the procedure well. She went to recovery room in good condition. Counts and instruments and sponges were correct. Complications: none Post-operative Condition: stable Disposition: same day surgery Plan for aftercare: Home when awake and stable
== END 2020-12-12 17:44 | disposition home or self-care (01) ==
PROVIDERS: Family Provider Family Medicine; PCP Family Medicine; Referring Provider Specialist; Visit Provider Specialist
PROC: (CPT 58120; principal; 2020-12-12 16:30)
DX: O02.1 Missed abortion (principal); Z3A.09 9 weeks gestation of pregnancy; Z20.822 Contact with and (suspected) exposure to COVID-19
CPT/HCPCS: 59820; 36415; 87635; J1100; J1885; J2250; J2405; J2704; J2765; J3010

== ENCOUNTER → 2021-06-11 08:50 | Outpatient (CLI) | payer OTHER, SELFPAY ==
[2021-06-11 09:41] LABS: Add Manual Diff / Slide Review NO; Basophils Absolute Auto 0 /uL (0-100); Basophils Percent Auto 0.5 % (0-2); Eosinophils Absolute Auto 0 /uL (0-450); Eosinophils Percent Auto 0.5 % (2-4); Hematocrit 35.7 % (36-46); Hemoglobin 12.2 g/dL (12.0-16.0); Lymphocytes Absolute Auto 1900 /uL (1100-4500); Lymphocytes Percent Auto 30.5 % (25-40); Mean Corpuscular HGB Conc 34.1 % (30-36); Mean Corpuscular Volume 87.7 fL (80-100); Monocytes Absolute Auto 400 /uL (0-900); Monocytes Percent Auto 6.5 % (3-14); Neutrophils Absolute Auto 3900 /uL (1500-7000); Platelet Count 276 X10^3/uL (150-400); Red Blood Cell Count 4.06 X10^6/uL (4.0-5.2); Red Cell Distribution Width 14.6 % (11.6-14.8); White Blood Cell Count 6.2 X10^3/uL (4.5-11.0)
[2021-06-11 10:22] LABS: Appearance Urine UA CLEAR; Bilirubin Urine UA NEGATIVE (NEGATIVE); Color Urine UA YELLOW; Glucose Urine UA NEGATIVE (Negative); Ketones Urine UA NEGATIVE (NEGATIVE); Leukocyte Esterase Urine UA NEGATIVE (NEGATIVE); Nitrite Urine UA NEGATIVE (Negative); Occult Blood Urine UA NEGATIVE (Negative); Protein Urine UA NEGATIVE (Negative); Urobilinogen Urine UA 0.2 E.U./dL (0.2)
[2021-06-11 10:24] LABS: pH Urine UA 8.5 (4.5-8.0)
[2021-06-12 08:13] LABS: RPR Screen Non Reactive (Non Reactive); Varicella IgG Antibody 1452 index (Immune >165)
[2021-06-12 16:21] LABS: Hepatitis B Surface Antigen NEGATIVE s/c (NEGATIVE); Rubella Antibody IgG 30.7 IU/mL (>15)
[2021-06-12 16:32] LABS: HIV 1 & 2 Ab/Ag 4th Gen Combo NEGATIVE (NEGATIVE); Hep C Virus Ab w/Reflex Quant NEGATIVE s/c (NEGATIVE)
== END ==
PROVIDERS: Family Provider Family Medicine; Referring Provider Specialist; Visit Provider Specialist
DX: Z34.81 Encounter for supervision of other normal pregnancy, first trimester (principal)
CPT/HCPCS: 36415; 80055; 81003; 86787; 86803; 86850; 86900; 86901; 87086; 87389

== ENCOUNTER → 2021-09-12 10:38 | Outpatient (CLI) | payer OTHER, SELFPAY ==
--- NOTE | 2021-09-12 10:40 | DI.US.S_ITS ---
PROCEDURE: US OB >= 14 WEEKS FETUS INDICATIONS: 20 wk anatomy OUTSIDE/PRIOR DATING DATA: Last menstrual period (LMP): 04/11/2021 LMP-based estimated date of delivery (JERZY): 01/16/2022. First dating scan (date and location): 06/11/2021. Estimated date of delivery (JERZY) from first dating scan: 01/17/2022. The calculations are made using the ultrasound JERZY of 01/17/2022. TECHNIQUE: Real-time scanning was performed of the fetus, with image documentation and biometric measurements. COMPARISON: [facility], , OB >= 14 WEEKS FETUS, 08/12/2021, 10:49. FINDINGS: General: A single living intrauterine gestation is present. Presentation: Variable. Placenta: Placental position is posterior , without previa. Amniotic fluid index: 9.8 cm, normal range is 5-24 cm. heart rate: 141 beats per minute. Maternal cervical canal: 4.0 cm long. Normal lower limit is 2.5 cm. biometrics: Biparietal diameter: 21 weeks Head circumference: 21 weeks 5 days Abdominal circumference: 21 weeks 5 days Femur length: 22 weeks 5 days Clinically estimated gestational age: 21 weeks 6 days Composite gestational age from present scan: 21 weeks 6 days Estimated weight and percentile: 472 g; 54th percentile. Anatomic survey: Neuro: Ventricles are non-dilated at less than 10 mm. Cisterna magna is normal at 3-11 mm. Cerebellum is normal in size and morphology. Nuchal skin fold: Normal at less than 6 mm between 14-21 weeks gestational age. Face: Nose and lips, facial profile are normal. Spine: No evidence for spina bifida. Heart: 4-chambered heart is present, with normal ventricular outflow tracts. Diaphragm: Diaphragm is intact. Stomach: Left-sided stomach is present. Kidneys: No hydronephrosis. Normal is less than 5 mm in 2nd trimester, less than 7 mm in 3rd trimester. Cord: 3-vessel cord has orthotopic insertion. Bladder: Normal in size. Extremities: All 4 extremities identified. IMPRESSION: 1. Single living IUP redemonstrated and interval growth is normal. 2. Normal anatomic survey. We strive to produce accurate, complete, and clear reports of imaging services. To assist us in improving patient care, this report was composed using standard report templates and voice recognition software. Therefore, it may contain abnormal punctuation, insertions and/or omissions. Occasional wrong-word or sound-alike substitutions may occur. Though we review the report and make efforts to correct it, we do recommend that the report be read carefully in proper context to recognize any text inaccuracies. Dictated by: Young MARIA Interpreted: Evgeny Stearns MD on 09/12/2021 at 12:07 Transcribed by: ISAC on 09/12/2021 at 12:09 Approved by: Evgeny Stearns M.D. on 09/12/2021 at 17:13
== END ==
PROVIDERS: Family Provider Family Medicine; Referring Provider Specialist; Visit Provider Specialist
DX: Z34.82 Encounter for supervision of other normal pregnancy, second trimester (principal); Z3A.21 21 weeks gestation of pregnancy
CPT/HCPCS: 76811

== ENCOUNTER → 2021-10-13 11:17 | Outpatient (CLI) | payer OTHER, SELFPAY ==
[2021-10-13 13:36] LABS: Hematocrit 32.7 % (36-46); Hemoglobin 11.2 g/dL (12.0-16.0)
[2021-10-13 13:40] LABS: GTT (PREG) 1 Hour PP 50gm Dose 163 mg/dL (76-139)
== END ==
PROVIDERS: Family Provider Family Medicine; Referring Provider Specialist; Visit Provider Specialist
DX: Z34.82 Encounter for supervision of other normal pregnancy, second trimester (principal); Z3A.26 26 weeks gestation of pregnancy
CPT/HCPCS: 36415; 82950; 85014; 85018

== ENCOUNTER → 2021-10-20 08:39 | Outpatient (CLI) | payer OTHER, SELFPAY ==
[2021-10-20 11:23] LABS: Glucose Fasting Gestational 72 mg/dL (76-95)
[2021-10-20 12:05] LABS: Glucose 1 Hour Gest 163 mg/dL (76-180)
[2021-10-20 12:39] LABS: Glucose Tol Interp,Gestational INTERPRETATION
[2021-10-20 12:59] LABS: Glucose 2 Hour Gest 151 mg/dL (76-155)
[2021-10-20 14:40] LABS: Glucose 3 Hour Gest 122 mg/dL (76-140)
== END ==
PROVIDERS: Family Provider Family Medicine; PCP Specialist; Referring Provider Specialist; Visit Provider Specialist
DX: O99.810 Abnormal glucose complicating pregnancy (principal); Z3A.27 27 weeks gestation of pregnancy
CPT/HCPCS: 36415; 82951; 82952

== ENCOUNTER → 2021-12-22 11:24 | Outpatient (CLI) | payer OTHER, SELFPAY ==
[2021-12-23 15:33] LABS: Strep Grp B PCR NEG for Grp B Strep
== END ==
PROVIDERS: Family Provider Family Medicine; Visit Provider Specialist
DX: Z34.83 Encounter for supervision of other normal pregnancy, third trimester (principal); Z3A.36 36 weeks gestation of pregnancy
CPT/HCPCS: 87653

== ENCOUNTER 2022-01-01 13:12 | Outpatient (CLI) | payer OTHER, SELFPAY ==
--- NOTE | 2022-01-01 13:39 | PM.OBTRLD ---
Visit Information Visit Information Date of evaluation: 01/01/22 Primary OB Provider: Leonie Og Reason for Evaluation: Yes non-stress test non-stress test reason: decreased movement [facility] Medical History (Updated 01/01/22 @ 13:40 by Leonie Og MD) Abnormal Pap smear of cervix (~2019) Chicken pox Endometriosis (~11/2017) Missed ab Ovarian cyst (~08/2019) RLQ abdominal pain UTI in Vaginal delivery (~09/2018) Surgical History (Updated 06/08/21 @ 15:45 by Tri Holm) Anesthesia H/O dilation and curettage (~12/2020) H/O laparoscopy (~11/2017) [place] teeth extracted (~2015) Family History (Updated 06/08/21 @ 15:47 by Tri Holm) Family/Other Cancer Grandfather Heart attack Family/Other Cancer Brain tumor Grandmother heart defect History of heart disease Family/Other Alcohol addiction Mother Family estrangement Father Family estrangement Grandfather No problems noted. Grandmother No problems noted. 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 ) substance use type: does not use during the past year weight has: decreased > 10 lbs well-balanced diet: daily or most days daily servings fruits/ve-4 caffeine: Yes (1 decaf daily, occasional soda.) Type(s) of exercise: walking (1-2 miles or so. ) frequency: 3-4 times per week duration: 45-60 minutes/day Evaluation Evaluation Baseline heart rate: 140 Variability: Moderate (11-25) monitor accelerations: Present Monitor Decelerations: Absent Contraction Frequency (minutes): 5 Uterine Contraction Intensity: Mild Category of Tracing: Reactive Status: Category l Diagnosis, Plan/Disposition Final Diagnosis (1) Decreased movement during in third trimester, antepartum: Status: Acute (2) 37 weeks gestation of : Status: Acute Plan/Disposition Plan: Patient likely in early labor. Patient is to return if she has increasing contractions, leakage of fluid, decreased movement. Otherwise keep appointment in 5 days OB Disposition: home
== END 2022-01-01 13:35 | disposition home or self-care (01) ==
LOC: LABOR 13:57 → OB 01-02 07:25
PROVIDERS: Family Provider Family Medicine; Referring Provider Specialist; Visit Provider Specialist
DX: O36.8130 Decreased fetal movements, third trimester, not applicable or unspecified (principal); Z3A.37 37 weeks gestation of pregnancy
CPT/HCPCS: 59025; G0378; G0379

== ENCOUNTER 2022-01-04 09:21 | Inpatient (IN) | payer OTHER, SELFPAY ==
[2022-01-04] MEDS: LACTATED RINGERS 1,000 ML 100 ML IV ×2 (10:40→14:54)
[2022-01-04 11:22] LABS: Add Manual Diff / Slide Review NO; Basophils Absolute Auto 0 /uL (0-100); Basophils Percent Auto 0.3 % (0-2); Eosinophils Absolute Auto 0 /uL (0-450); Eosinophils Percent Auto 0.5 % (2-4); Hematocrit 32.1 % (36-46); Hemoglobin 10.7 g/dL (12.0-16.0); Lymphocytes Absolute Auto 2300 /uL (1100-4500); Lymphocytes Percent Auto 24.9 % (25-40); Mean Corpuscular HGB Conc 33.3 % (30-36); Mean Corpuscular Hemoglobin 28.2 PG (26-34); Mean Corpuscular Volume 84.6 fL (80-100); Monocytes Absolute Auto 600 /uL (0-900); Monocytes Percent Auto 6.5 % (3-14); Neutrophils Absolute Auto 6300 /uL (1500-7000); Neutrophils Percent Auto 67.8 % (50-75); Platelet Count 366 X10^3/uL (150-400); Red Cell Distribution Width 15.2 % (11.6-14.8); White Blood Cell Count 9.3 X10^3/uL (4.5-11.0)
--- NOTE | 2022-01-04 11:29 | P.HPOB_ITS ---
OB HPI Date/Time Date of admission: 01/04/22 Date Patient Seen: 01/04/22 Time Patient Seen: 11:29 History of Present Condition Chief complaint: Spontaneous rupture membranes : 7 Para: 2 Estimated Date of Delivery: 01/16/22 Estimated Gestational Age (weeks): 37 Narrative: Jazz Larios is a 26 year old female who had spontaneous rupture membranes 8:00 a.m. today History of Present care: good care, initiated at week # (8), number of visits (12) and pounds weight gain (31) Dating criteria: LMP confirmed by 1st trimester US Ultrasounds: normal mid trimester US Obstetrical complications: none Medical complications: none Preadmission Labs Blood type: O (+) positive -: Antibody screen: negative, GBS status: negative, HBsAG: negative, HIV: negative and RPR/VDLR: negative -: Chlamydia screen: not detected and Gonorrhea screen: not detected -: Rubella: immune and Varicella: immune HCAB: negative 1 hr GTT: 163 3 hr GTT: 1 hr (163), 2 hr (151) and 3 hr (122) Fasting blood glucose: 72 Prior (ies) History: Unknown 4-5 spontaneous WA spontaneous 10/04/18 37.5 weeks 6 lb 13 oz [facility] 04/11/19 4-5 spontaneous WA spontaneous 05/29/19 4-5 spontaneous WA spontaneous 03/24/20 39 weks 8 lb 8.2 oz Malevaginallive - full termnoneOn a boat in the ocean! Out of Hospital! Fabricio 12/10/20 10 spontaneous spontaneous Evaluation Evaluation Baseline heart rate: 135 Variability: Moderate (11-25) monitor accelerations: Present Monitor Decelerations: Absent Contraction Frequency (minutes): 5 Uterine Contraction Intensity: Mild Category of Tracing: Reactive Status: Category l Dilation (cm): 3 Effacement (%): 90 station: -3 Non-invasive Membranes Rupture Test: positive [facility] Medical History (Updated 01/01/22 @ 13:40 by Lenoie Og MD) Abnormal Pap smear of cervix (~2019) Chicken pox Endometriosis (~11/2017) Missed ab Ovarian cyst (~08/2019) RLQ abdominal pain UTI in Vaginal delivery (~09/2018) Surgical History (Updated 06/08/21 @ 15:45 by Tri Holm) Anesthesia H/O dilation and curettage (~12/2020) H/O laparoscopy (~11/2017) [place] teeth extracted (~2015) Family History (Updated 06/08/21 @ 15:47 by Tri Holm) Family/Other Cancer Grandfather Heart attack Family/Other Cancer Brain tumor Grandmother heart defect History of heart disease Family/Other Alcohol addiction Mother Family estrangement Father Family estrangement Grandfather No problems noted. Grandmother No problems noted. 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 ) substance use type: does not use during the past year weight has: decreased > 10 lbs well-balanced diet: daily or most days daily servings fruits/ve-4 caffeine: Yes (1 decaf daily, occasional soda.) Type(s) of exercise: walking (1-2 miles or so. ) frequency: 3-4 times per week duration: 45-60 minutes/day Meds Home Medications and Allergies Home Medications Medication Instructions Recorded Confirmed Type prenat.vits,radha,kom-[id number] 1 tab PO DAILY 12/04/20 12/29/21 History doxylamine succinate 25 mg tablet 25 mg PO BEDTIME PRN 05/28/21 12/29/21 History (Unisom (doxylamine)) pyridoxine (vitamin B6) 50 mg 50 mg PO BID 05/28/21 12/29/21 History tablet fluconazole 150 mg tablet 150 mg PO Q3D Yeast infection 2 12/22/21 12/29/21 Rx (Diflucan) doses #2 tabs Allergies Allergy/AdvReac Type Severity Reaction Status Date / Time adhesive tape Allergy Intermediate Rash/Bliste Verified 12/29/21 11:32 rs latex Allergy Intermediate ITCHING Verified 12/29/21 11:32 hydrocodone [From Vicodin] AdvReac Intermediate Nausea, Verified 12/29/21 11:32 Dizziness tramadol AdvReac Intermediate Unsure if Verified 12/29/21 11:32 this was the correct drug - avoid codeine [CODEINE] AdvReac Unknown Vomiting Verified 12/29/21 11:32 Review of Systems Review of Systems Narrative: Patient with spontaneous rupture membranes clear fluid at 8:00 a.m.. Some mild contractions. Good movement. No headaches, scotomata, epigastric pain. OB Exam Narrative Exam Narrative: Blood pressure 121/70, pulse 90, temperature 36.3? HEENT exam within normal limits. Lungs are clear to auscultation percussion. Heart is regular rate and rhythm no S3-S4 murmurs. Abdomen is soft, nontender. Fetus is vertex. Extremities without edema and nontender. Objective Labs Result Diagrams: 01/04/22 10:45 Assessment and Plan Assessment and Plan Assessment and Plan narrative: 37 and 6 weeks with spontaneous rupture membranes not currently in active labor. Will begin Pitocin augmentation. Anticipate vaginal delivery.
[2022-01-04 11:43] LABS: COVID19 -Nasal RAPID Negative (Negative)
[2022-01-04] MEDS: OXYTOCIN PREMIX 30 UNIT/500 ML PLAST..BAG IV (11:56)
[2022-01-04] MEDS: ONDANSETRON 4 MG/2 ML INJ IV ×2 (12:51→16:52)
--- NOTE | 2022-01-04 13:37 | P.HPOB_ITS ---
OB HPI Date/Time Date of admission: 01/04/22 Date Patient Seen: 01/04/22 Time Patient Seen: 12:30 History of Present Condition Chief complaint: Spontaneous rupture membranes JERZY Calculator Estimated Delivery Date Method Current WG Current Estimate 01/16/22 LMP (Certain) 38w 2d Other Estimates 01/17/22 Ultrasound #1 38w 1d Estimated Gestational Age (weeks): 38+2 : 7 Para: 2 care: good care, initiated at week # (8), number of visits (12) and pounds weight gain (31) Dating criteria OB: LMP confirmed by 1st trimester US Ultrasounds: normal 1st trimester US and normal mid trimester US Obstetrical complications: none Medical complications OB: none Preadmission Labs Last OB Lab Results: Blood Type O Positive 01/04/22 10:45 Antibody Screen Negative 01/04/22 10:45 Hematocrit 32.1 % (36-46) L 01/04/22 10:45 Hemoglobin 10.7 g/dL (12.0-16.0) L 01/04/22 10:45 Hepatitis B Surface Antigen Negative s/c (NEGATIVE) 06/11/21 09 :22 Hepatitis C Antibody Negative s/c (NEGATIVE) 06/11/21 09:22 Rubella Antibody 30.7 IU/mL (>15) 06/11/21 09:22 Varicella-Zoster IgG Antibody 1452 index (Immune >165) 06/11/21 09:22 Glucose 1 Hour 163 mg/dL (76-139) H 10/13/21 11:22 Group B Streptococcus (PCR) Neg for grp b strep 12/22/21 11:24 Glucose Tolerance Testing: Fasting (72), 1 hr (163), 2 hr (151) and 3 hr (122) -: Chlamydia screen: negative, Gonorrhea screen: negative and Urine: negative -: PAP smear: Abnormal (LGSIL) External Labs -: Urine: negative Prior (ies) Past Pregnancies Del. Date GA/Weeks Labor Lgth Wt Sex Route Outcome Anesthesia Place Delv Breastfeed Preg Comp Name Unknown 4-5 spontaneous WA spontaneous 10/04/18 37.5 19 6 lb 13 oz Female vaginal live - full te [facility] : Dr Og 4 Wks none Stefany 04/11/19 4-5 spontaneous WA spontaneous 05/29/19 4-5 spontaneous WA spontaneous 03/24/20 39 4 8 lb 8.2 oz Male vaginal live - full t erm none On a boat in the ocean! Out of Hospital! 2 months attempt none Fabricio 12/10/20 10 spontaneous spontaneous Delivery Date: Last Updated by: Sweta Anna R.N. *2015 or 2017 unsure of details Delivery Date: 10/04/18 Last Updated by: Sweta Anna R.N. *Struggled with : difficult to manage her emotions. Delivery Date: 04/11/19 Last Updated by: Sweta Anna R.N. *Unsure of exact dating. Delivery Date: 05/29/19 Last Updated by: Sweta Anna R.N. *Coped OK. Delivery Date: 03/24/20 Last Updated by: Ewa Hernandez R.N. *Precipitate delivery <3hrs; SROM - clear; Nuchal cord X 1 and loosely to body also. *2nd Tear with Repair : still painful to Perineal area. *PPD but no help : but coped well. Delivery Date: 12/10/20 Last Updated by: Ewa Hernandez R.N. Missed AB, D&C to complete. Evaluation Evaluation Baseline heart rate: 125 Variability: Average (6-10) monitor accelerations: Present Monitor Decelerations: Absent Contraction Frequency (minutes): 3 Uterine Contraction Intensity: Strong/Firm Status: Category l Dilation (cm): 3 Effacement (%): 90 station: -3 Position of cervix: anterior Consistency: soft Non-invasive Membranes Rupture Test: positive [facility] Medical History (Updated 01/01/22 @ 13:40 by Leonie Og MD) Abnormal Pap smear of cervix (~2019) Chicken pox Endometriosis (~11/2017) Missed ab Ovarian cyst (~08/2019) RLQ abdominal pain UTI in Vaginal delivery (~09/2018) Surgical History (Updated 06/08/21 @ 15:45 by Tri Holm) Anesthesia H/O dilation and curettage (~12/2020) H/O laparoscopy (~11/2017) [place] teeth extracted (~2015) Family History (Updated 06/08/21 @ 15:47 by Tri Holm) Family/Other Cancer Grandfather Heart attack Family/Other Cancer Brain tumor Grandmother heart defect History of heart disease Family/Other Alcohol addiction Mother Family estrangement Father Family estrangement Grandfather No problems noted. Grandmother No problems noted. 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 ) substance use type: does not use during the past year weight has: decreased > 10 lbs well-balanced diet: daily or most days daily servings fruits/ve-4 caffeine: Yes (1 decaf daily, occasional soda.) Type(s) of exercise: walking (1-2 miles or so. ) frequency: 3-4 times per week duration: 45-60 minutes/day Meds Home Medications and Allergies Home Medications Medication Instructions Recorded Confirmed Type prenat.vits,radha,opi-rgbq-mpkud 1 tab PO DAILY 12/04/20 01/04/22 History doxylamine succinate 25 mg tablet 25 mg PO BEDTIME PRN Sleep 05/28/21 01/04/22 History (Unisom (doxylamine)) pyridoxine (vitamin B6) 50 mg 50 mg PO BID 05/28/21 01/04/22 History tablet fluconazole 150 mg tablet 150 mg PO Q3D Yeast infection 2 12/22/21 01/04/22 Rx (Diflucan) doses #2 tabs Allergies Allergy/AdvReac Type Severity Reaction Status Date / Time adhesive tape Allergy Intermediate Rash/Bliste Verified 12/29/21 11:32 rs latex Allergy Intermediate ITCHING Verified 12/29/21 11:32 hydrocodone [From Vicodin] AdvReac Intermediate Nausea, Verified 12/29/21 11:32 Dizziness tramadol AdvReac Intermediate Unsure if Verified 12/29/21 11:32 this was the correct drug - avoid codeine [CODEINE] AdvReac Unknown Vomiting Verified 12/29/21 11:32 OB Exam Narrative Exam Narrative: Generally: Patient getting uncomfortable, asking for epidural. Lungs: Clear to auscultation bilaterally Cardiovascular: Regular rate and rhythm Fundal height: 39 cm Estimated weight: 7 and half to 8 lb Extremities: Trace edema, 1+ DTRs Objective Labs Result Diagrams: 01/04/22 10:45 Labs: Laboratory Results - last 24 hr 01/04/22 01/04/22 01/04/22 10:45 10:45 10:45 WBC 9.3 RBC 3.80 L Hgb 10.7 L Hct 32.1 L MCV 84.6 MCH 28.2 MCHC 33.3 RDW 15.2 H Plt Count 366 Neut % (Auto) 67.8 Lymph % (Auto) 24.9 L [place] % (Auto) 6.5 Eos % (Auto) 0.5 L Baso % (Auto) 0.3 Neut # (Auto) 6300 Lymph # (Auto) 2300 [place] # (Auto) 600 Eos # (Auto) 0 Baso # (Auto) 0 SARS-CoV-2 (PCR) Negative Blood Type O Positive Antibody Screen Negative Assessment and Plan Assessment and Plan Assessment and Plan narrative: Assessment: 26-year-old 7 para 2 at 38-,2/7 weeks gestation in active labor with spontaneous rupture of membranes Plan: Continue Pitocin per protocol 1 Epidural Expected management to spontaneous vaginal delivery Time Spent with Patient Total time spent with greater than 50% in coordination of care (as documented) at patient's floor/unit and/or counseling patient:: 15-24 minutes
--- NOTE | 2022-01-04 13:53 | P.PCN_ITS ---
Regional Block Pre-procedure Procedure: Continuous Lumbar Epidural for L&D Attending OB provider: Leonie Og PMH/ROS narrative: term labor, SROM, no complications ASA Class: II Labs: Hct 32.1 % (36-46) L 01/04/22 10:45 Plt Count 366 X10^3/uL (150-400) 01/04/22 10:45 Medications: Current Medications Generic Name Dose Route Start Last Admin Trade Name Freq PRN Reason Stop Dose Admin Calcium Carbonate 1,000 mg 01/04/22 10:03 Calcium Carbonate 500 Mg Tab PO Q2HR PRN Dyspepsia Carboprost Tromethamine 250 mcg 01/04/22 10:03 Carboprost 250 Mcg/Ml Ampul IM Q90M PRN Bleeding Diphenhydramine HCl 25 mg 01/04/22 12:57 Diphenhydramine 50 Mg/Ml Vial IV Q10M PRN Pruritis Oxytocin/Lactated Ringer's 30 unit in 500 mls @ 200 mls/hr 01/04/22 10:03 Oxytocin Premix IV CONT PRN Bleeding Protocol Lactated Ringer's 1,000 mls @ 100 mls/hr 01/04/22 10:15 01/04/22 10:40 Lactated Ringers IV 100 mls/hr CONT SAKINA Administration Tranexamic Acid 1,000 mg/ 100 mls @ 200 mls/hr 01/04/22 10:03 Sodium Chloride IV NOW PRN Bleeding Oxytocin/Lactated Ringer's 30 unit in 500 mls @ 1 mls/hr 01/04/22 11:18 01/04/22 11:56 Oxytocin Premix IV 1 milliunit/min TITRATE SAKINA 1 mls/hr Administration Protocol 1 MILLIUNIT/MIN FENT 2MCG/ML BUPIV 0.125% EPI 200 mcg in 100 mls @ 6 mls/hr 01/04/22 13:00 Fentanyl/Bupiv/Ns 2mcg/Ml - 0.125% EPIDURAL CONT SAKINA Methylergonovine Maleate 0.2 mg 01/04/22 10:03 Methylergonovine 0.2 Mg/Ml Vial IM NOW PRN Bleeding Methylergonovine Maleate 0.2 mg 01/04/22 10:03 Methylergonovine 0.2 Mg Tablet PO Q6HR PRN Heavy Bleeding Misoprostol 800 mcg 01/04/22 10:03 Misoprostol 200 Mcg Tablet NE NOW PRN Bleeding Misoprostol 1,000 mcg 01/04/22 10:03 Misoprostol 200 Mcg Tablet NE NOW PRN Bleeding Misoprostol 400 mcg 01/04/22 10:03 Misoprostol 200 Mcg Tablet SL NOW PRN Bleeding Nalbuphine HCl 2.5 mg 01/04/22 12:57 Nalbuphine 20 Mg/Ml Ampul IV Q10M PRN Pruritis Ondansetron HCl 4 mg 01/04/22 10:03 01/04/22 12:51 Ondansetron 4 Mg/2 Ml Inj IV 4 mg Q4HR PRN Administration Nausea And Vomiting Oxytocin 10 unit 01/04/22 10:03 Oxytocin 10 Unit/Ml Vial IM NOW PRN Bleeding Allergies: Allergies Allergy/AdvReac Type Severity Reaction Status Date / Time adhesive tape Allergy Intermediate Rash/Bliste Verified 12/29/21 11:32 rs latex Allergy Intermediate ITCHING Verified 12/29/21 11:32 hydrocodone [From Vicodin] AdvReac Intermediate Nausea, Verified 12/29/21 11:32 Dizziness tramadol AdvReac Intermediate Unsure if Verified 12/29/21 11:32 this was the correct drug - avoid codeine [CODEINE] AdvReac Unknown Vomiting Verified 12/29/21 11:32 Procedure Insertion date: 01/04/22 Insertion time: 13:14 Prep/Local: betadine x3 and 1% lidocaine Interspace: L3-4 Patient position: sitting Needle: 18 gauge LayerGlosstead (CSE: 27g Pencan through Hustead, 0.5mL 0.5% bupiv MPF) Loss of resistance with: saline PAULINE at (cm): 5 Catheter placed at SKIN (cm): 10 Catheter in SPACE (cm): 5 Insertion: No CSF, No Blood, No Paresthesia with insertion, No Paresthesia with injection and No Test dose reaction Initial Medications TEST DOSE time: 13:12 TEST DOSE: 1.5% lidocaine with epinephrine 1:200k (mL): 3 BOLUS DOSE time: 13:28 BOLUS DOSE (mL): 4 BOLUS DOSE med: other (infusate) Infusion INFUSION: 0.125% bupivacaine and with fentanyl 2 mcg/mL Initial rate (mL/hr): 6 Subsequent interventions: 16:00 6mL 2-chloroprocaine, rate to 10 Post-procedure Anesthesia time START: 13:10 Anesthesia time END: 16:59 Post-procedure Anesthesia Assessment: Yes CV function: HR/BP stable, Yes Resp function: RR/sat/airway adequate, Yes Mental status appropriate and No Anesthesia complications
[2022-01-04 14:55] VITALS: BP 103/55
[2022-01-04 15:00] VITALS: BP 102/59; PULSE 74; RESP 16; TEMP 36.7
--- NOTE | 2022-01-04 17:14 | PM.OBPRVD ---
Events: Labor Augmentation Labor & Delivery Delivery date: 01/04/22 Cervical ripening method: none Induction method: none Delivery augmentation: pitocin Delivery monitor: external FHT and external uterine Route of delivery: L&D Laceration Description: None Estimated blood loss (mL): 100 Anesthesia Type: Epidural Narrative: Patient arrived on Labor and delivery after spontaneous rupture membranes. She did not go into spontaneous labor so Pitocin was started. She received an epidural catheter for pain control. heart tones category 1 to category 2 throughout labor. The patient delivered spontaneously, over an intact perineum. A nuchal cord was released. The viable female infant was placed on maternal abdomen. After the cord stopped pulsating the cord was clamped, cut, and cord bloods obtained. The placenta delivered spontaneously, intact, with 3 vessels. There were no cervical, vaginal, or perineal tears. Both infant mother doing well. Baby 1: gender: Female Presentation: vertex Position: Left Occiput Anterior Placenta delivery description: Spontaneous Cord Vessel Description: 3 Vessels score (1 min): 9 score (5 min): 9 Plan for aftercare: Routine care
[2022-01-04] MEDS: IBUPROFEN 600 MG TABLET PO (18:10)
[2022-01-04] MEDS: ACETAMINOPHEN 325 MG TABLET 650 MG PO (18:51)
[2022-01-04 19:40] VITALS: TEMP 36.6
[2022-01-04] MEDS: DERMOPLAST SPRAY 20% 60 ML 1 SPRAY TOP (21:23)
[2022-01-04] MEDS: LANOLIN OINT 7 GM 1 APPLIC TOP (21:23)
[2022-01-05] MEDS: IBUPROFEN 600 MG TABLET PO ×2 (00:20→08:51)
[2022-01-05] MEDS: ACETAMINOPHEN 325 MG TABLET 650 MG PO ×2 (05:52→10:45)
[2022-01-05 06:21] LABS: Add Manual Diff / Slide Review NO; Basophils Absolute Auto 0 /uL (0-100); Basophils Percent Auto 0.4 % (0-2); Eosinophils Absolute Auto 100 /uL (0-450); Eosinophils Percent Auto 0.8 % (2-4); Hematocrit 28.9 % (36-46); Hemoglobin 9.5 g/dL (12.0-16.0); Lymphocytes Absolute Auto 3200 /uL (1100-4500); Mean Corpuscular Hemoglobin 27.8 PG (26-34); Mean Corpuscular Volume 84.2 fL (80-100); Monocytes Absolute Auto 900 /uL (0-900); Monocytes Percent Auto 7.5 % (3-14); Neutrophils Absolute Auto 8100 /uL (1500-7000); Neutrophils Percent Auto 65.3 % (50-75); Platelet Count 292 X10^3/uL (150-400); Red Blood Cell Count 3.43 X10^6/uL (4.0-5.2); Red Cell Distribution Width 14.9 % (11.6-14.8); White Blood Cell Count 12.4 X10^3/uL (4.5-11.0)
--- NOTE | 2022-01-05 07:45 | PM.OBDS.1 ---
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 She did not have active contractions so Pitocin augmentation was begun. She received an epidural catheter for pain control. She had a spontaneous vaginal delivery of a viable female . She is breast-feeding without difficulty. She is urinating and ambulating well. She denies headaches, scotomata, epigastric pain. Peripartum Data Infant Delivery Method: Natural Vaginal Laceration Description: None complications: none 1: Gender: Female Disposition of : home Discharge Diagnosis (1) Vaginal delivery: Status: Acute Status at Discharge Cognitive/behavioral status at discharge: oriented Functional status at discharge: independent ambulation Overall status at discharge: patient is progressing back to baseline Time Spent with Patient Time attestation: Total time spent providing and/or coordinating discharge services: Time spent: Less than 30 minutes Objective Labs Result Diagrams: 01/05/22 05:59 Labs: Laboratory Results - last 24 hr 01/04/22 01/04/22 01/04/22 10:45 10:45 10:45 WBC 9.3 RBC 3.80 L Hgb 10.7 L Hct 32.1 L MCV 84.6 MCH 28.2 MCHC 33.3 RDW 15.2 H Plt Count 366 Neut % (Auto) 67.8 Lymph % (Auto) 24.9 L [place] % (Auto) 6.5 Eos % (Auto) 0.5 L Baso % (Auto) 0.3 Neut # (Auto) 6300 Lymph # (Auto) 2300 [place] # (Auto) 600 Eos # (Auto) 0 Baso # (Auto) 0 SARS-CoV-2 (PCR) Negative Blood Type O Positive Antibody Screen Negative 01/05/22 05:59 WBC 12.4 H RBC 3.43 L Hgb 9.5 L Hct 28.9 L MCV 84.2 MCH 27.8 MCHC 33.0 RDW 14.9 H Plt Count 292 Neut % (Auto) 65.3 Lymph % (Auto) 26.0 [place] % (Auto) 7.5 Eos % (Auto) 0.8 L Baso % (Auto) 0.4 Neut # (Auto) 8100 H Lymph # (Auto) 3200 [place] # (Auto) 900 Eos # (Auto) 100 Baso # (Auto) 0 SARS-CoV-2 (PCR) Blood Type Antibody Screen Exam Vital Signs (past 8 hours): Blood pressure 109/63, pulse of 54, temperature 98.3? Narrative Exam Narrative: Patient's abdomen is soft, nontender. Uterus is firm, at U, nontender. Mild lochia. Extremities with trace edema and nontender. Patient is Rh positive, rubella immune, she received Tdap in the 3rd trimester. Discharge Plan Discharge Plan Patient Disposition: Home Discharge orders & Medications Prescriptions: Continued prenat.vits,radha,[id number] Tablet 1 tab PO DAILY Discontinued pyridoxine (vitamin B6) 50 mg tablet 50 mg PO BID Unisom (doxylamine) 25 mg tablet 25 mg PO BEDTIME MDD 25mg PRN (Reason: Sleep) fluconazole [Diflucan] 150 mg tablet 150 mg PO Q3D Qty: 2 0RF Rx Instructions: may repeat second dose 72 hrs after first dose if symptoms persist Follow up/Referrals: Jesica Joe MD [Physician] - 6 Weeks Doctor Del Valle MD [Primary Care Provider] - Diet/Activity/Treatments Diet: Regular Activity: Nothing in vagina for 6 weeks Skin/Wound/Dressing Care Report to your healthcare provider any signs of infection, such as:: chills, fever and increased pain Discharge Data Primary Care Provider: Doctor Eligio
[2022-01-05] MEDS: DOCUSATE 100 MG CAPSULE PO (08:51)
== END 2022-01-05 14:13 | disposition home or self-care (01) | DRG 807 ==
PROVIDERS: Admitting Provider Specialist; Family Provider Family Medicine; Referring Provider Specialist; Visit Provider Specialist
DX: O42.02 Full-term premature rupture of membranes, onset of labor within 24 hours of rupture (principal); Z37.0 Single live birth; Z3A.37 37 weeks gestation of pregnancy; O69.81X0 Labor and delivery complicated by cord around neck, without compression, not applicable or unspecified; Z20.822 Contact with and (suspected) exposure to COVID-19
CPT/HCPCS: 01967; 36415; 59050; 59400; 85025; 86850; 86900; 86901; 87635; C9803; G0379; J2405; J2590

== ENCOUNTER → 2022-08-18 15:08 | Outpatient (CLI) | payer OTHER, SELFPAY ==
--- NOTE | 2022-08-18 15:09 | DI.MRI.S_ITS ---
PROCEDURE: MR HEAD/BRAIN WO CON INDICATIONS: new chronic headaches with no history TECHNIQUE: Noncontrast axial T1 spin echo, axial T2 fast spin echo, sagittal and axial FLAIR, coronal T2 fast spin echo, axial gradient echo, axial diffusion and ADC through the brain. COMPARISON: None. FINDINGS: Image quality: Excellent. CSF Spaces: Basal cisterns are patent. No extra-axial fluid collections. Ventricles are normal in size and shape. Brain: No intracranial masses or hemorrhage. Solorio/white matter interface is normal. Brainstem appears normal. Diffusion-weighted images demonstrate no acute ischemic insult. No chronic ischemic insults. Normal intravascular flow voids are present. Skull and face: Calvarium has normal marrow signal. Orbits appear normal. Sinuses: Sinuses and mastoids are clear. IMPRESSION: Normal MRI of the brain. Dictated by: Evan Santiago M.D. on 08/18/2022 at 16:43 Approved by: Evan Santiago M.D. on 08/18/2022 at 16:45
== END ==
PROVIDERS: Family Provider Family Medicine; PCP Family Medicine; Referring Provider Family Medicine; Visit Provider Family Medicine
DX: G43.511 Persistent migraine aura without cerebral infarction, intractable, with status migrainosus (principal); G44.229 Chronic tension-type headache, not intractable; G89.29 Other chronic pain
CPT/HCPCS: 70551

== ENCOUNTER → 2023-01-11 08:54 | Outpatient (CLI) | payer OTHER, SELFPAY ==
[2023-01-11 19:56] LABS: Add Manual Diff / Slide Review NO; Basophils Absolute Auto 0 /uL (0-100); Basophils Percent Auto 0.7 % (0-2); Eosinophils Absolute Auto 100 /uL (0-450); Eosinophils Percent Auto 1.4 % (2-4); Hematocrit 38.9 % (36-46); Hemoglobin 13.1 g/dL (12.0-16.0); Lymphocytes Absolute Auto 2300 /uL (1100-4500); Mean Corpuscular HGB Conc 33.5 % (30-36); Mean Corpuscular Hemoglobin 30.1 PG (26-34); Mean Corpuscular Volume 89.7 fL (80-100); Monocytes Absolute Auto 400 /uL (0-900); Monocytes Percent Auto 6.2 % (3-14); Neutrophils Absolute Auto 3300 /uL (1500-7000); Neutrophils Percent Auto 53.7 % (50-75); Platelet Count 302 X10^3/uL (150-400); Red Blood Cell Count 4.34 X10^6/uL (4.0-5.2); Red Cell Distribution Width 13.6 % (11.6-14.8); White Blood Cell Count 6.2 X10^3/uL (4.5-11.0)
[2023-01-11 20:12] LABS: Prothrombin Time 11.5 SECONDS (10.1-12.7)
[2023-01-11 20:15] LABS: PTT Partial Thromboplastin Tim 32 SECONDS (26-36)
== END ==
PROVIDERS: Family Provider Family Medicine; PCP Family Medicine; Visit Provider Family Medicine
DX: T14.8XXA Other injury of unspecified body region, initial encounter (principal)
CPT/HCPCS: 85025; 85610; 85730